=== PATIENT | male | born 1995 | race Caucasian/White ===

== ENCOUNTER 2018-08-09 11:26 | Inpatient (IN) ==
--- NOTE | 2018-08-09 12:28 | Emergency Department Note ---
ED Disposition Clinical Impression: Rectal foreign body Qualifiers: Encounter type: subsequent encounter Qualified Code(s): T18.5XXD - Foreign body in anus and rectum, subsequent encounter Disposition: Still a Patient Condition on Discharge: Good - Critical Care Critical Care Time: No Attestation: On 08/09/18, the high probability of a clinically significant, sudden or life th reatening deterioration of the following system(s) required my full and direct attention, intervention and personal management. The time I documented below is in addition to time spent performing reported procedures but includes the following listed in this critical care notation. Medical Decision Making - Endy Inquiry Pt receiving controlled substance: No Endy was queried for this patient: No Vital Signs: 08/09/18 11:31 08/09/18 12:36 08/09/18 12:58 Temperature 97.6 F Temperature Source Oral Pulse Rate [Left Radial] 103 H 99 H 96 H Respiratory Rate 18 18 18 Blood Pressure [Left Arm] 137/87 101/69 L 131/72 Blood Pressure Mean [Left Arm] 103 79 91 Blood Pressure Source [Left Arm] Automatic Cuff Automatic Cuff Automatic Cuff Blood Pressure Position [Left Arm] Sitting Sitting Sitting 02 Sat by Pulse Oximetry 97 98 96 Oxygen Delivery Method Room Air Room Air Room Air - Lab Data Lab Results 08/09/18 12:55: WBC 14.9 H, RBC 5.08, Hgb 13.5 L, Hct 42.1, MCV 83.0, MCH 26.6 L , MCHC 32.0, RDW 13.3, Plt Count 340, MPV 6.4 L, Neut % (Auto) 80.0, Lymph % (Auto) 10.7, [place] % (Auto) 7.5, Eos % (Auto) 1.6, Baso % (Auto) 0.2, Neut # (Auto) 12.0 H, Lymph # (Auto) 1.6, [place] # (Auto) 1.1 H, Eos # (Auto) 0.2, Baso # (Auto) 0.0 08/09/18 12:55: Sodium 139, Potassium 3.8, Chloride 102, Carbon Dioxide 26, Anion Gap 14.8, BUN 8, Creatinine 0.85, Estimated Creat Clear 143, Estimated GFR 111, Est GFR ( Amer) 134, Glucose 108 H, Calcium 8.6 Result diagrams: 08/10/18 08:16 12/24/18 08:16 Orders (Tests/Meds): ED MEDICATIONS Discontinued Medications Generic Name Dose Route Start Last Admin Trade Name Jedq PRN Reason Stop Dose Admin Acetaminophen 650 mg 08/09/18 17:17 Acetaminophen 325mg Tab PO 09/08/18 17:16 Q6HP PRN Mild Pain Hydrocodone Bitart/Acetaminophen 1 tab 08/09/18 17:17 08/11/18 23:32 [place] 5/325mg Tablet PO 09/08/18 17:16 1 tab Q6HP PRN Administration Moderate to Severe Pain Diatrizoate Meglum/Diatrizoate Sod 360 ml 08/10/18 12:00 08/10/18 12:04 Rad-Gastrografin (66%-10%);120ml RC 08/10/18 12:01 360 ml ONCE ONE Administration Hydromorphone HCl 0.5 mg 08/09/18 17:31 Dilaudid 2mg/Ml Syringe IV 08/09/18 19:31 Q5MINP PRN Moderate to Severe Pain Lactated Ringer's 1,000 mls @ 50 mls/hr 08/09/18 17:30 08/12/18 10:19 Lactated Ringer's 1000 Ml Bag IV 09/08/18 17:29 50 mls/hr .Q20H [place] Administration Ampicillin Sodium/Sulbactam 100 mls @ 200 mls/hr 08/09/18 17:30 08/10/18 10:58 Sodium 3 gm/ Sodium Chloride IV 08/23/18 17:29 Not Given Q6H [place] Protocol Ampicillin Sodium/Sulbactam 100 mls @ 200 mls/hr 08/09/18 21:30 08/10/18 03:48 Sodium 3 gm/ Sodium Chloride IV 08/23/18 21:29 200 mls/hr Q6H [place] Administration Protocol Ampicillin Sodium/Sulbactam 100 mls @ 200 mls/hr 08/10/18 11:00 08/12/18 05:09 Sodium 3 gm/ Sodium Chloride IV 08/24/18 10:59 200 mls/hr Q6H [place] Administration Protocol Meperidine HCl 12.5 mg 08/09/18 17:31 Meperidine 25mg/Ml 1ml Syringe IV 08/09/18 19:31 Q5MINP PRN [place] Meperidine HCl 25 mg 08/09/18 17:31 Meperidine 25mg/Ml 1ml Syringe IV 08/09/18 19:31 Q5MINP PRN [place] Morphine Sulfate 2 mg 08/09/18 17:17 08/09/18 23:28 Morphine 2mg/Ml Syringe IV 09/08/18 17:16 2 mg Q2HP PRN Administration Moderate to Severe Pain Morphine Sulfate 2 mg 08/09/18 17:31 Morphine 2mg/Ml Syringe IV 08/09/18 19:31 Q5MINP PRN Severe Pain Morphine Sulfate 2 mg 08/10/18 08:03 08/10/18 20:35 Morphine 4mg/Ml Syringe IV 09/08/18 17:16 2 mg Q2HP PRN Administration Moderate to Severe Pain Ondansetron HCl 4 mg 08/09/18 17:17 08/11/18 08:05 Zofran 4mg/2ml Vial IV 09/08/18 17:16 4 mg Q6HP PRN Administration Nausea Ondansetron HCl 4 mg 08/09/18 17:31 Zofran 4mg/2ml Vial IV 08/09/18 19:31 Q6HP PRN Nausea Promethazine HCl 6.25 mg 08/09/18 17:31 Phenergan 25mg/Ml 1ml Vial IV 08/09/18 19:31 [id number] PRN Nausea And Vomiting Sodium Chloride 10 ml 08/09/18 17:17 08/09/18 23:28 Saline Flush 10ml Syringe IV 09/08/18 17:16 10 ml NEEDED PRN Administration Maintain IV Site Sodium Chloride 25 ml 08/09/18 17:31 Sod Chlor 0.9% 25ml Bag IV 08/09/18 19:32 NEEDED PRN for Use with IV Promethazine - Radiology Data #1 Image(s): Pelvis Image Reviewed: Yes I reviewed the patient's radiology image round foreign body high rectum General Adult HPI - General Chief complaint: Skin/Abscess/Foreign Body Stated complaint: object stuck in anal cavity Time Seen by Provider: 08/09/18 12:00 Mode of Arrival: Ambulatory Limitations: No Limitations Description of Symptoms (Recalled from ER Triage Doc. by RN): Pt reports that "I have a butt toy stuck in my butt", pt states object has been in his rectum since midnight tonight. Pt reports discomfort in rectal area. - History of Present Illness HPI narrative: playing with a leather sex toy last night, a "butt plug" and states the base broke off. This was 12 hours ago. No rectal bleeding, fever, abdominal pain, vomiting MD complaint: butt plug in rectum x 12 hours Onset (ago): hour(s) (12) Location: pelvis Radiation: non-radiation Severity: mild Severity scale (1-10): 1 Consistency: constant Relieving factors: none - Related Data Home Medications Medication Instructions Recorded Confirmed acetaminophen 500 mg capsule 500 mg PO Q6H PRN 08/19/18 08/19/18 Allergies Allergy/AdvReac Type Severity Reaction Status Date / Time cefaclor [From Ceclor] Allergy Unknown Verified 08/19/18 09:43 [facility] [place] History - Hepatitis A Screen Drug use history?: No High risk sexual behaviors?: No History of sexually transmitted infection?: No Currently employed?: No Childcare worker?: No Do you have indoor plumbing?: Yes Do you have electricity?: Yes Attestation statement:: This patient has been screened for Hepatitis A risk factors. Medical History: Denies:: Diabetes Mellitus Type 1, Diabetes Mellitus Type 2 - Social History Tobacco Type: cigarettes Alcohol Intake: never Alcohol Intake Frequency:: 0-2 drinks per day - Psychiatric History Expresses thoughts of harming self/others: None Suicide Plan Description: No Plan Family Hx:: No significant family history ROS Obtained: Yes All systems reviewed & no additional complaints - Constitutional Constitutional: Reports system reviewed and no additional complaints, except as docu, Denies chills, Reports fatigue, Denies weakness - Eyes Eyes: Denies loss of vision - ENT Ears, Nose, Mouth, and Throat: Denies difficulty swallowing, Denies throat swelling - Cardiovascular Cardiovascular: Denies chest pain at rest, Denies chest pain with activity, Denies dyspnea, Denies rapid heart rate - Respiratory Respiratory: No coughing up blood, No pain on inspiration - Genitourinary Male Genitourinary: Denies difficulty urinating, Denies difficulty with ejaculations, Denies hematuria - Musculoskeletal Musculoskeletal: Denies muscle weakness - Integumentary/Breasts Skin/Breast: Reports system reviewed and no additional complaints, except as docu, Denies rash - Neurologic Neurologic: Denies dizziness, Denies headache(s), Denies numbness - Hematologic/Lymphatic Henatologic/Lymphatic: Denies easy bleeding, Denies easy bruising Physical Exam - General General appearance: alert, in no apparent distress - Head Head exam: atraumatic - Eye Eye exam: Present: normal appearance, scleral icterus - ENT ENT exam: Present: normal exam, normal oropharynx, mucous membranes moist - Neck Neck exam: Present: normal inspection - Respiratory Respiratory exam: Present: normal lung sounds bilaterally. Absent: respiratory distress, wheezes, stridor - Cardiovascular Cardiovascular exam: Present: regular rate, normal rhythm - Rectal Exam Rectal exam: Present: normal inspection, normal rectal tone, other (foreign body high rectum, correlates with xray). Absent: bloody stool, fecal impaction - Extremities Exam Extremities exam: Present: normal inspection, full ROM. Absent: tenderness, normal capillary refill, pedal edema, joint swelling - Neurological Exam Neurological exam: Present: alert, oriented X3, CN II-XII intact - Psychiatric Psychiatric exam: Present: normal affect - Skin Skin exam: Present: warm, dry, intact, normal color. Absent: rash, cyanosis, diaphoresis
[2018-08-09 13:09] LABS: Basophils % 0.2 % (0.1-2.0); Eosinophils # 0.2 K/mm3 (0.0-0.4); Eosinophils % 1.6 % (0.1-12.0); Hematocrit 42.1 % (42.0-52.0); Hemoglobin 13.5 g/dL (14.1-18.0); Lymphocytes # 1.6 K/mm3 (0.7-4.5); Lymphocytes % 10.7 % (10-50); Mean Corpuscular Hemoglobin 26.6 pg (27.0-31.2); Mean Platelet Volume 6.4 fl (7.4-10.4); Monocytes # 1.1 K/mm3 (0.1-1.0); Monocytes % 7.5 % (1.7-9.3); Platelet Count 340 K/mm3 (142-424); Red Blood Count 5.08 M/mm3 (4.60-6.20); Red Cell Distribution Width 13.3 % (11.5-17.5); White Blood Count 14.9 K/mm3 (4.8-10.8)
[2018-08-09 13:17] LABS: Anion Gap 14.8 mEq/L (5-15); Calcium 8.6 mg/dL (8.5-10.1); Potassium 3.8 mmoL/L (3.5-5.1)
--- NOTE | 2018-08-09 13:23 | History & Physical Report ---
HPI HPI: Patient is a 22-year-old white male who allegedly had inserted a foreign body in his rectum approximately midnight last night and has been unable to retrieve or defecate the foreign body. He does have some pressure when sitting up but no severe pain. No rectal bleeding. Attempt was made at extraction in the emergency department without success and surgical consultation was obtained. [facility] History Medical History: Denies:: Diabetes Mellitus Type 1, Diabetes Mellitus Type 2 - *Social History Tobacco Type: cigarettes Alcohol Intake: never Alcohol Intake Frequency:: 0-2 drinks per day - Psychiatric History Expresses thoughts of harming self/others: None Suicide Plan Description: No Plan *Family Hx:: No significant family history Review of Systems - Review of Systems Review of systems:: pertinent systems reviewed and negative unless documented below - *Neurologic Denies dizziness, Denies headache(s), Denies loss of vision, Denies numbness, Denies weakness Meds Home Medications Medication Instructions Recorded Confirmed Type No Known Home Medications 08/09/18 08/09/18 History Allergies Allergy/AdvReac Type Severity Reaction Status Date / Time cefaclor [From Ceclor] Allergy Unknown Unverified 08/05/17 14:06 Exam Vital signs and Labs for Last 24 Hours: Temp Pulse Resp BP Pulse Ox 97.6 F 99 H 18 101/69 L 98 08/09/18 11:31 08/09/18 12:36 08/09/18 12:36 08/09/18 12:36 08/09/18 12:36 Laboratory Results - last 24 hr 08/09/18 12:55: WBC 14.9 H, RBC 5.08, Hgb 13.5 L, Hct 42.1, MCV 83.0, MCH 26.6 L , MCHC 32.0, RDW 13.3, Plt Count 340, MPV 6.4 L, Neut % (Auto) 80.0, Lymph % (Auto) 10.7, [place] % (Auto) 7.5, Eos % (Auto) 1.6, Baso % (Auto) 0.2, Neut # (Auto) 12.0 H, Lymph # (Auto) 1.6, [place] # (Auto) 1.1 H, Eos # (Auto) 0.2, Baso # (Auto) 0.0 08/09/18 12:55: Sodium 139, Potassium 3.8, Chloride 102, Carbon Dioxide 26, Anion Gap 14.8, BUN 8, Creatinine 0.85, Estimated Creat Clear 143, Estimated GFR 111, Est GFR ( Amer) 134, Glucose 108 H, Calcium 8.6 I & O for Last 24 hours: Intake & Output 08/07/18 08/08/18 08/09/18 08/10/18 11:59 11:59 11:59 11:59 Weight 310 lb - *Routine HEENT Exam Head: Present: normocephalic Eye: Present: EOMI, PERRL ENT: Present: mucous membranes moist - *Routine Neck Exam Present: supple. Absent: lymphadenopathy - *Routine Respiratory Exam Present: CTA bilaterally - *Routine Cardiovascular Exam Present: RRR - *Routine Abdominal Exam Present: soft, normoactive bowel sounds. Absent: tenderness - *Routine Extremities Exam Absent: cyanosis, clubbing, edema - *Routine Skin Exam Present: warm. Absent: rash - *Routine Neurological Exam Present: alert, oriented X3 - Detailed Eye Exam Eyelids: Left normal inspection Results - Results Lab Results Last 24 Hours:: Laboratory Results - last 24 hr 08/09/18 12:55: WBC 14.9 H, RBC 5.08, Hgb 13.5 L, Hct 42.1, MCV 83.0, MCH 26.6 L , MCHC 32.0, RDW 13.3, Plt Count 340, MPV 6.4 L, Neut % (Auto) 80.0, Lymph % (Auto) 10.7, [place] % (Auto) 7.5, Eos % (Auto) 1.6, Baso % (Auto) 0.2, Neut # (Auto) 12.0 H, Lymph # (Auto) 1.6, [place] # (Auto) 1.1 H, Eos # (Auto) 0.2, Baso # (Auto) 0.0 08/09/18 12:55: Sodium 139, Potassium 3.8, Chloride 102, Carbon Dioxide 26, Anion Gap 14.8, BUN 8, Creatinine 0.85, Estimated Creat Clear 143, Estimated GFR 111, Est GFR ( Amer) 134, Glucose 108 H, Calcium 8.6 Assessment and Plan - Assessment and plan all Dx Assessment and Plan for all problems:: Plan for exam under anesthesia with retrieval of foreign body. I explained the nature and details of the procedure along with the associated risks with the patient. I also explained to him the potential need for operative intervention if necessary. He understands and agrees to proceed.
--- NOTE | 2018-08-09 15:11 | Operative Note ---
Date of procedure: 08/09/18 Pre-op Diagnosis:: Rectal foreign body Post-op Diagnosis:: Same Procedure performed:: Exam under general anesthesia, proctosigmoidoscopy with instrumentation of the rectum. Surgeon:: Ronnell Arredondo MD MANAGER CONVENTION:: Armando Riley Anesthesia: GETA Estimated blood loss (mL): 5 Clinical Note:: Patient is a 22-year-old white male who allegedly around midnight last night had a rectal foreign body inserted and this was unable to be retrieved. He presented to the emergency department early this afternoon and surgical consultation was obtained as the ER physician was unable to extract the foreign body. Plan was made for exam under anesthesia with proctosigmoidoscopy if necessary. Operative findings:: Patient had what appeared to be a leather athletic ball at the rectosigmoid region Operative note:: Consent was obtained and patient was taken the operating room. He was pos itioned in a supine position. General anesthesia was induced. He was positioned in modified lithotomy position. Digital examination was performed which revealed diminished sphincter tone. The object in question was unable to be palpated initially. Liberty anoscope was inserted. The object could not be identified. Rigid proctoscope was inserted and advanced to approximately 17 or 18 cm. Object was identified but was unable to be retrieved. Endoscope equipment was brought to the operating room. Flexible sigmoidoscopy was performed and the object in question was encountered at the rectosigmoid junction. This appeared to be consistent with a spherical leather bound athletic ball. Balloon dilator was inserted through the endoscope and was advanced beyond the object and insufflated. Retraction was then performed in attempt to withdrawal the object into the rectal vault. This was repeatedly performed several times with minimal, only transient, success. As it was withdrawn somewhat the rigid proctoscope was inserted once again and multiple attempts were made to extract the object using laparoscopic grasping forceps without success. After a very prolonged unsuccessful attempted to extract the object plan was made to proceed with exploratory laparotomy. Condition: stable Disposition: no change Complications:: None immediately apparent
--- NOTE | 2018-08-09 17:09 | Operative Note ---
Date of procedure: 08/09/18 Pre-op Diagnosis:: Colorectal foreign body Post-op Diagnosis:: Same Procedure performed:: 1. Exploratory laparotomy with extraction of colorectal foreign body via the anus 2. Limited completion flexible sigmoidoscopy Surgeon:: Ronnell Arredondo MD BUTTER MELTER:: Armando Riley Anesthesia: GETA Estimated blood loss (mL): 50 Clinical Note:: Patient is a 22-year-old white male who had presented to the emergency department earlier this afternoon with a 12-hour history of reportedly retained rectal foreign body. Attempts at extraction in the emergency department were unsuccessful and surgical consultation was obtained. Patient was taken to the operating room at which time he underwent stage a as well as rigid proctosigmoidoscopy and flexible sigmoidoscopy in an attempt to extract the foreign body. After prolonged procedure with a variety of techniques no success was achieved and retrieval of the foreign body and plan was made for laparotomy. Operative findings:: Patient had a large spherical object with a leather covering knitted in place tightly impacted at the rectosigmoid region with "Joanna" printed on the leather covering. There was no obvious colon perforation. Operative note:: Consent was obtained and patient was maintained in the operating room after his unsuccessful attempt at extraction my exam under anesthesia. His abdomen and perineum were prepped and draped in the standard surgical fashion after a Lion catheter was placed. Low midline incision was made dissection was carried down through subcutaneous tissues using electrocautery. Fascia was incised. Ultimately the peritoneal cavity was entered. Simple entry into the peritoneal cavity was rather difficult due to the patient's profound body habitus. Ultimately exposure was achieved. There is limited visualization but palpation of the lower abdomen revealed a very large spherical object which was seemingly impacted at the rectosigmoid region. Attempted intra-abdominal manipulation with extraction via the anus was performed for quite some time initially without success. Consideration was being given for colon resection with creation of end colostomy for extraction of the foreign body. However, additional attempt was made to manipulate the foreign body to the rectum. With difficulty was able to be advanced beyond the peritoneal reflection at the rectosigmoid region and into the rectal vault. It was then extracted via the anus. This did require some extensive pressure and manipulation of the colon. There was no obvious notable injury to the colon but exposure and visualization was difficult due to the patient's body habitus. There appeared to be good hemostasis. The fascia was then closed with a running #2 Novafil x2. Subcutaneous tissues were irrigated. Skin was closed with maye. Clean dry sterile dressing was applied. At the completion of the laparotomy limited flexible sigmoidoscopy was performed. Visualization was somewhat poor due to the lack of colon preparation. Thorough irrigation was performed. Flexible sigmoidoscopy was performed to approximately 30-35 cm from the anal verge. There was noted to be a linear ulceration without perforation approximately 18-20 cm from the anal verge at the site of the foreign body impaction. There was not noted to be any obvious perforation in the region of the foreign body impaction or proximally or distally noted although preparation was poor. Endoscope was withdrawn. Condition: stable Disposition: PACU Complications:: None immediately apparent
--- NOTE | 2018-08-09 17:29 | Progress Note ---
[facility] Anesthesia Checklist - Patient Identification Patient Identification: Arm Band - Structural Data Admitted From: Emergency Dept Planned Operative Procedure/s: removal foreign body rectum Consent for Planned Operative Procedure(s) Verified: Yes Verified Documents: Surgical Consent, History and Physical - NPO Status Verified Time NPO: 00:00 - Additional verifications Anesthesia Reactions: No - Airway Assessment C-Spine Mobility Assessed: Yes (mp1) TMJ Mobility Assessed: Yes Dentition: Good Dentition - Neurological Assessment Level of Consciousness: Awake, Alert - Anesthesia Plan Anesthesia Risk discussed: Yes Anesthesia Plan: Verified ASA Class: II (e) Anesthesia Type: General [facility] History I have reviewed the patient's past medical history: Yes Medical History: Reports:: Hypertension Denies:: Diabetes Mellitus Type 1, Diabetes Mellitus Type 2 Other Surgeries: Yes: No Previous Surgery - *Social History Tobacco Type: cigarettes Alcohol Intake: never Alcohol Intake Frequency:: 0-2 drinks per day - Psychiatric History Expresses thoughts of harming self/others: None Suicide Plan Description: No Plan *Family Hx:: No significant family history
--- NOTE | 2018-08-09 17:31 | Progress Note ---
[facility] Anesthesia Record Part II Discharge Time: 17:50 Destination: 2nd floor PACU nurse assessment reviewed?: Yes Patient Condition:: Good Anesthesia Complications:: None
--- NOTE | 2018-08-09 17:31 | Progress Note ---
[facility] Anesthesia Record Part I Intake, IV Amount: 2,000 Estimated blood loss (mL): 50 Urine output (mL): 700 Blood Pressure: 133/73 SaO2: 95 Pulse Rate: 72 Respiratory Rate: 16 Temperature: 98.5 F Patient is:: Drowsy, Stable Stable to PACU at:: 17:20
--- NOTE | 2018-08-10 08:01 | Progress Note ---
Subjective Narrative: Patient complains of significant amount of pain around his incision. He has no nausea. Exam Vital signs and Labs for Last 24 Hours: Temp Pulse Resp BP Pulse Ox 98.5 F 94 H 15 112/58 L 91 L 08/10/18 07:23 08/10/18 07:23 08/10/18 07:23 08/10/18 07:23 08/10/18 07:23 Laboratory Results - last 24 hr 08/09/18 12:55: WBC 14.9 H, RBC 5.08, Hgb 13.5 L, Hct 42.1, MCV 83.0, MCH 26.6 L , MCHC 32.0, RDW 13.3, Plt Count 340, MPV 6.4 L, Neut % (Auto) 80.0, Lymph % (Auto) 10.7, [place] % (Auto) 7.5, Eos % (Auto) 1.6, Baso % (Auto) 0.2, Neut # (Auto) 12.0 H, Lymph # (Auto) 1.6, [place] # (Auto) 1.1 H, Eos # (Auto) 0.2, Baso # (Auto) 0.0 08/09/18 12:55: Sodium 139, Potassium 3.8, Chloride 102, Carbon Dioxide 26, Anion Gap 14.8, BUN 8, Creatinine 0.85, Estimated Creat Clear 143, Estimated GFR 111, Est GFR ( Amer) 134, Glucose 108 H, Calcium 8.6 08/09/18 15:40: Urine Color Yellow, Urine Appearance Clear, Urine pH 6.0, Ur Specific [place] 1.020, Urine Protein Negative, Urine Glucose (UA) Negative, Urine Ketones Trace, Urine Blood Negative, Urine Nitrate Negative, Urine Bilirubin Negative, Urine Urobilinogen 0.2, Ur Leukocyte Esterase Negative, Urine WBC 3-5 I & O for Last 24 hours: Intake & Output 08/07/18 08/08/18 08/09/18 08/10/18 11:59 11:59 11:59 11:59 Intake Total 3771 / 3771 Output Total 2200 / 2200 Balance 1571 / 1571 Weight 310 lb 306 lb 5 oz - *Routine Abdominal Exam Present: soft Comments: He has brownish serosanguineous drainage on the dressing. He is tender in incision lower quadrant. Progress Note: A&P Assessment and Plan for All Diagnoses:: Likely merely serosanguineous drainage. However, concerning with the amount of pain the patient is having in addition to the drainage. We will obtain a Gastrografin enema as soon as possible this morning to evaluate for the integrity of the rectosigmoid colon and rule out leak. If he does have a leak he will need laparotomy with colostomy.
[2018-08-10 08:23] LABS: Basophils % 0.2 % (0.1-2.0); Eosinophils # 0.2 K/mm3 (0.0-0.4); Eosinophils % 1.3 % (0.1-12.0); Hematocrit 41.3 % (42.0-52.0); Lymphocytes # 2.4 K/mm3 (0.7-4.5); Lymphocytes % 18.8 % (10-50); Mean Corpuscular HGB Conc 31.4 g/dL (31.8-35.4); Mean Corpuscular Hemoglobin 26.5 pg (27.0-31.2); Mean Corpuscular Volume 84.3 fl (80-94); Mean Platelet Volume 6.6 fl (7.4-10.4); Monocytes % 7.6 % (1.7-9.3); Neutrophils # 9.2 K/mm3 (1.8-7.8); Neutrophils % 72.2 % (37.0-80.0); Platelet Count 281 K/mm3 (142-424); Red Cell Distribution Width 13.4 % (11.5-17.5); White Blood Count 12.7 K/mm3 (4.8-10.8)
--- NOTE | 2018-08-10 08:27 | Pharmacy Consult Notes ---
[facility] Pharmacy VTE Monitoring - Patient Demographics Admission date: 08/09/18 Report Date: 08/10/18 Time: 08:27 Allergies/Adverse Reactions: Patient Allergies cefaclor [From Ceclor] Allergy (Unknown, Verified 08/09/18 18:31) Height: 1.8 m Weight: 138.941 kg Patient Problems: Current Active Problems Rectal foreign body (Acute) - VTE Risk Labs: VTE Related Lab Results Hgb 13.0 g/dL (14.1-18.0) L 08/10/18 08:16 Hct 41.3 % (42.0-52.0) L 08/10/18 08:16 Plt Count 281 K/mm3 (142-424) 08/10/18 08:16 BUN 8 mg/dL (7-18) 08/09/18 12:55 Creatinine 0.85 mg/dL (0.70-1.30) 08/09/18 12:55 Estimated Creat Clear 143 mL/min (50-200) 08/09/18 12:55 Clinical Trial Participant: No - Prophylaxis VTE Prophylaxis Ordered?: Yes Types of VTE Prophylaxis: TEDS Knee High Location of Applied Device: Bilateral Lower Extremeties
[2018-08-10 08:29] LABS: Calcium 8.1 mg/dL (8.5-10.1)
--- NOTE | 2018-08-11 09:45 | Progress Note ---
Subjective Patient reports: bowel movement, nausea, vomiting (Nausea and one episode of emesis earlier this morning.) Exam Vital signs and Labs for Last 24 Hours: Temp Pulse Resp BP Pulse Ox 98.0 F 96 H 18 147/90 H 97 08/11/18 07:52 08/11/18 07:52 08/11/18 07:52 08/11/18 07:52 08/11/18 07:52 I & O for Last 24 hours: Intake & Output 08/08/18 08/09/18 08/10/18 08/11/18 11:59 11:59 11:59 11:59 Intake Total 3771 / 3771 2281 / 2281 Output Total 2200 / 2200 1100 / 1100 Balance 1571 / 1571 1181 / 1181 Weight 310 lb 306 lb 5 oz - Constitutional no acute distress - *Routine Respiratory Exam Absent: respiratory distress - *Routine Cardiovascular Exam Present: RRR - *Routine Abdominal Exam Present: soft Comments: Incision clean and intact. No erythema. Small amount of serosanguineous drainage inferiorly. Progress Note: A&P (1) Rectal foreign body Status: Acute Assessment and plan: Overall, doing fairly well status post exploratory laparotomy with removal of colorectal foreign body. Although he has had bowel function postoperatively, significant nausea and an episode of emesis earlier this morning. No advancement of diet as of now Serial abdominal exams Increase ambulation Current Visit: Yes
--- NOTE | 2018-08-12 08:36 | Progress Note ---
Subjective Patient reports: feels better, bowel movement Exam Vital signs and Labs for Last 24 Hours: Temp Pulse Resp BP Pulse Ox 97.9 F 86 16 114/65 94 L 08/12/18 08:00 08/12/18 08:00 08/12/18 08:00 08/12/18 08:00 08/12/18 08:00 I & O for Last 24 hours: Intake & Output 08/09/18 08/10/18 08/11/18 08/12/18 11:59 11:59 11:59 11:59 Intake Total 3771 / 3771 2281 / 2281 1440 / 1440 Output Total 2200 / 2200 1100 / 1100 Balance 1571 / 1571 1181 / 1181 1440 / 1440 Weight 310 lb 306 lb 5 oz - Constitutional no acute distress - *Routine Respiratory Exam Absent: respiratory distress - *Routine Cardiovascular Exam Present: RRR - *Routine Abdominal Exam Present: soft Comments: Incision clean, dry, and intact. No erythema. Progress Note: A&P (1) Rectal foreign body Status: Acute Assessment and plan: , Doing well postoperative day 3 status post laparotomy and colorectal foreign body removal. Advance diet. Likely discharge home soon if he tolerates continued advancement of his diet. Current Visit: Yes
--- NOTE | 2018-08-12 12:34 | Discharge Summary ---
General - General Admission date:: 08/09/18 Discharge date: 08/12/18 HPI HPI: Patient is a 22-year-old white male who allegedly had inserted a foreign body in his rectum approximately midnight last night and has been unable to retrieve or defecate the foreign body. He does have some pressure when sitting up but no severe pain. No rectal bleeding. Attempt was made at extraction in the emergency department without success and surgical consultation was obtained. Hospital Course Hospital Course: The patient underwent endoscopic attempts at foreign body removal. This was followed by laparotomy with transanal extraction of foreign body. Please see operative reports for detail. Postoperatively, he convalesced fairly well. He did have fairly significant pain on postoperative day 1. Gastrografin enema revealed no sign of leak. He also suffered from a fairly mild postoperative ileus. By postoperative day 3 he was tolerating clear liquids fairly well and his diet was advanced. He remained afebrile with stable normal vital signs and was deemed appropriate for discharge on the afternoon of postoperative day 3. Objective Vital signs: Temp Pulse Resp BP Pulse Ox 97.9 F 86 16 114/65 94 L 08/12/18 08:00 08/12/18 08:00 08/12/18 08:00 08/12/18 08:00 08/12/18 08:15 no acute distress - *Routine HEENT Exam Head: Present: normocephalic, atraumatic - *Routine Neck Exam Present: full ROM - Routine Chest/Breast/Axilla Exam Chest wall: Absent: tenderness - *Routine Respiratory Exam Absent: respiratory distress - *Routine Cardiovascular Exam Present: RRR - *Routine Abdominal Exam Present: soft - *Routine Extremities Exam Present: full ROM. Absent: cyanosis, clubbing, edema - Routine Back/Spine/Pelvis Exam Back/Spine: Present: full ROM - *Routine Skin Exam Present: intact. Absent: cyanosis, erythema - *Routine Neurological Exam Present: alert, oriented X3 - Routine Psychiatric Exam Present: normal affect DS: Diagnosis - Discharge Diagnosis (1) Rectal foreign body Status: Acute Discharge Plan - Patient Discharge Instructions ACTIVITY: No heavy lifting DIET: advance to your usual diet Patient Instructions: DI for Removal of Foreign Body From Rectum, DI for Nausea -- Adult, DI for Surgical Site Infection - Follow up Plan Follow up with: ProviderLeonidas MD [Primary Care Provider] - Ronnell Arredondo MD [Staff Physician] - 1 week Disposition: Home, Self-Skilled Nursing Medications: Home Medications Medication Instructions Recorded Confirmed Type No Known Home Medications 08/09/18 08/09/18 History Prescriptions/Medication Reconciliation: No Action No Known Home Medications
== END 2018-08-12 14:56 | disposition home or self-care (01) | DRG 346 ==
LOC: ER 11:26 → 2ND 13:19 → SDC 13:19 → OBSVTOIN 15:07
PROVIDERS: ADMIT Surgery; ATTEND Surgery
DX: T18.5XXA Foreign body in anus and rectum, initial encounter
CPT/HCPCS: 36415; 74000; 74018; 74270; 80048; 81001; 85025; 93005; 94761; 99284; C1726; J0131; J0330; J2405; J2710

== ENCOUNTER 2019-12-19 13:51 | Emergency (ER) | payer BC, SELFPAY ==
[2019-12-19 14:00] VITALS: BP 143/95; PULSE 114; RESP 18; TEMP 37.3; O2SAT 97; BMI 43.2
--- NOTE | 2019-12-19 14:22 | HMH.EDUTC ---
[facility] [place] Clinical Impression: UTI (urinary tract infection) Qualifiers: Urinary tract infection type: site unspecified Hematuria presence: with hematuria Qualified Code(s): N39.0 - Urinary tract infection, site not specified Disposition: Home, Self-Care Condition on Discharge: Good Instructions: Urinary Tract Infection, Ciprofloxacin, Phenazopyridine Additional Instructions: *Increase fluids. Water not Soda or Tea *Start antibiotic immediately and be sure to take as ordered for the FULL length of time although you should start to see improvement over the next 48 hours Be SURE to follow up anytime for new or worsening symptoms with your family doctor. AND in 48 hours for urine culture results with your family doctor, if you do not have a doctor then you may call back to the [facility] for urine culture results and further treatment. We do recommend that you choose and establish care with a Primary Care Physician. *Pyridium as needed Remember this medication will turn your urine [place]. This is normal but it will stain what ever it gets on *You should not use Pyridium for more than 48 hours. If so , follow up with your primary physician to review urine culture and ensure that antibiotic is adequate for infection AND follow up with them in 10-14 days to repeat UA to ensure infection is resolved and blood no longer present *Be sure to let your PCP know that we sent urine cultures from the [facility] so they can follow up to ensure that you area the on the correct antibiotic Call your doctor office and make appointment for 48 hours (2 days from today) to follow up and get the results of your urine culture and further treatment Prescriptions: Ciprofloxacin HCl [Cipro 500mg Tab] 500 mg PO BID 10 Days #20 tab Prescription Printed Phenazopyridine HCl [Pyridium 200mg Tablet] 200 pow PO TID #6 tab Prescription Printed Referrals: Leah Mackay [Primary Care Provider] - As needed Time of Disposition: 14:45 Medical Decision Making - Endy Inquiry Pt receiving controlled substance: No Endy was queried for this patient: No Vital Signs: 12/19/19 14:00 Temperature 99.2 F Temperature Source Oral Pulse Rate [Radial] 114 H Respiratory Rate 18 Blood Pressure [Right Arm] 143/95 H Blood Pressure Mean [Right Arm] 111 Blood Pressure Source [Right Arm] Automatic Cuff Blood Pressure Position [Right Arm] Sitting 02 Sat by Pulse Oximetry 97 Oxygen Delivery Method Room Air - Lab Data Lab results reviewed: Yes: I reviewed the patient's lab results. Lab Results 12/19/19 14:18: Urine Color Yellow, Urine Appearance Clear, Urine pH 5.5, Ur Specific [place] 1.025, Urine Protein 1+, Urine Glucose (UA) Negative, Urine Ketones Negative, Urine Blood 1+, Urine Nitrate Negative, Urine Bilirubin Negative, Urine Urobilinogen 0.2, Ur Leukocyte Esterase 1+ A Orders (Tests/Meds): ORDERS Category Date Time Status Urine Culture Stat Micro 12/19/19 14:37 Ordered [facility] [place] - General Stated complaint: ? kidney infection Time Seen by Provider: 12/19/19 14:22 Mode of Arrival: Ambulatory Source of Information: Patient Limitations: No Limitations Description of Symptoms (Recalled from Triage Doc. by RN): burning with urination, possible uti HEENT Symptoms (Recalled from RN notes): No Resp Symptoms (Recalled from RN notes): No Skin Symptoms (Recalled from RN notes): No MS Symptoms (Recalled from RN notes): No Functional Status (Recalled from RN notes): wnl - History of Present Illness Provider Complaint: Patient states that he has been having some burning with urination for a couple of days that has continued to get worse along with the feeling of urgency and frequency States that he has a history or UTI and use to get them all the time Denies fever denies flank pain denies difficulty urinating - Related Data Previous Rx's Medication Instructions Recorded Ciprofloxacin HCl [Cipro 500mg 500 mg PO BID 10 Days #20 tab 12/19/19 Tab*
[2019-12-19 14:31] LABS: Apearance,Urine Clear (Clear); Bilirubin,Urine Negative (Negative); Blood, Urine 1+ (Negative); Color,Urine Yellow (Yellow); Glucose,Urine (UA) Negative (Negative); Ketones,Urine Negative (Negative); PH,Urine 5.5 (5.0-8.5); Protein,Urine 1+ (Negative); Specific Gravity, Urine 1.025 (1.005-1.030); UTC Leukocyte Esterase,Urine 1+ (Negative); UTC Nitrate,Urine Negative (Negative); Urobilinogen,Urine 0.2 EU/dl (0.2)
[2019-12-19 14:53] VITALS: BP 143/95; PULSE 114; RESP 18; TEMP 37.3; O2SAT 97
== END 2019-12-19 14:54 | disposition home or self-care (01) ==
PROVIDERS: Emergency Provider Nurse Practitioner; PCP Family Medicine
DX: N30.00 Acute cystitis without hematuria (principal); I10 Essential (primary) hypertension
CPT/HCPCS: 81003; 87086; 87088; 87186; 99201

== ENCOUNTER → 2020-09-05 14:14 | Outpatient (CLI) | payer BC, SELFPAY ==
--- NOTE | 2020-09-05 14:20 | XR_ITS ---
PROCEDURE: XR FOOT WT BEARING LT 3V CLINICAL INDICATION: PAIN COMPARISON: CR XR FOOT RT MIN 3V from 11/05/2019 CR XR FOOT WT BEARING RT 3V from 09/05/2020 FINDINGS: No fracture or dislocation. No lytic or blastic change. There is normal mineralization. The joint spaces are well-preserved. No significant degenerative/arthritic changes. No erosive changes evident. Other findings:Moderate pes planus mild hypertrophic changes are present involving the distal and anterior aspect of the talus with osteoarthritic change of the talonavicular joint IMPRESSION: Moderate pes planus with mild hypertrophic changes are present involving the distal and anterior aspect of the talus with osteoarthritic change of the talonavicular joint Dictated by: Jerome Hahn MD 09/05/2020 14:51 Jerome Hahn MD in [place] 09/05/2020 14:51
--- NOTE | 2020-09-05 14:20 | XR_ITS ---
PROCEDURE: XR FOOT WT BEARING RT 3V CLINICAL INDICATION: PAIN COMPARISON: CR XR FOOT RT MIN 3V from 11/05/2019 FINDINGS: No fracture or dislocation. No lytic or blastic change. There is normal mineralization. The joint spaces are well-preserved. No significant degenerative/arthritic changes. No erosive changes evident. Other findings:There is mild pes planus IMPRESSION: Pes planus otherwise negative Dictated by: Jerome Hahn MD 09/05/2020 14:50 Jerome Hahn MD in [place] 09/05/2020 14:50
== END ==
PROVIDERS: PCP Family Medicine; Visit Provider Podiatrist
DX: M79.672 Pain in left foot (principal); M79.671 Pain in right foot
CPT/HCPCS: 73630

== ENCOUNTER 2022-04-01 13:08 | Emergency (ER) | payer BC, SELFPAY ==
[2022-04-01 13:09] VITALS: BP 145/94; PULSE 84; RESP 18; TEMP 36.7; O2SAT 95; BMI 43.3
[2022-04-01 13:31] VITALS: BP 130/84; PULSE 87; O2SAT 95
--- NOTE | 2022-04-01 13:44 | CT_ITS ---
FINAL REPORT CLINICAL HISTORY: pain, constipation x 3 days FINDINGS: Axial CT images of the abdomen and pelvis were obtained without intravenous contrast. Coronal reformatted images were also obtained.This study was performed with techniques to keep radiation doses as low as reasonably achievable (ALARA). Individualized dose reduction techniques using automated exposure control or adjustment of mA and/or kV according to the patient's size were employed. Abdomen: The lung bases are clear. There is no evidence of renal stone or hydronephrosis.The liver, spleen and pancreas have an unremarkable, unenhanced appearance. There is an umbilical hernia containing fat. Pelvis: The appendix is normal. The urinary bladder is unremarkable. There is wall thickening of the rectum with adjacent inflammation which may represent colitis. Neoplasm is not excluded but thought less likely. There are several enlarged perirectal nodes. IMPRESSION: No renal or ureteral stone, or hydronephrosis. Wall thickening of the rectum with adjacent inflammation which may represent colitis. Neoplasm is not excluded but thought less likely. Reviewed, Interpreted and Dictated by Ronnell Zelaya III, MD Transcribed by Sona Ferraro Authenticated and [facility]
--- NOTE | 2022-04-01 13:49 | HMH.EDGENADL ---
ED Disposition Clinical Impression: Colitis Disposition: Home, Self-Care Condition on Discharge: Good Instructions: DI for Colitis Prescriptions: Ciprofloxacin HCl [Cipro 500mg Tab] 500 mg PO BID #20 tab Transmission Status: Pending to [facility] # metroNIDAZOLE [metroNIDAZOLE 500mg Tablet] 0 mg PO Q8 #30 tab Transmission Status: Pending to [employer] # Referrals: Leah Mackay [Primary Care Provider] - Ronnell Arredondo MD [Staff Physician] - - Critical Care Critical Care Time: No Attestation: On 04/01/22, the high probability of a clinically significant, sudden or life threatening deterioration of the following system(s) required my full and direct attention, intervention and personal management. The time I documented below is in addition to time spent performing reported procedures but includes the following listed in this critical care notation. Medical Decision Making - Medical Records Medical records reviewed: Yes: I reviewed the patient's medical records. - Endy Inquiry Pt receiving controlled substance: No Vital Signs: 04/01/22 13:09 04/01/22 13:31 Temperature 98.1 F Temperature Source Oral Pulse Rate 87 Pulse Rate [Right Radial] 84 Respiratory Rate 18 Blood Pressure 130/84 Blood Pressure [Right Arm] 145/94 H Blood Pressure Mean 98 Blood Pressure Mean [Right Arm] 111 Blood Pressure Source [Right Arm] Automatic Cuff Blood Pressure Position [Right Arm] Sitting 02 Sat by Pulse Oximetry 95 95 Oxygen Delivery Method Room Air - Lab Data Lab Results 04/01/22 15:05: WBC 10.9 H, RBC 5.25, Hgb 13.9 L, Hct 44.2, MCV 84.3, MCH 26.4 L, MCHC 31.4 L, RDW 13.6, Plt Count 420, MPV 7.3 L, Neut % (Auto) 72.8, Lymph % (Auto) 18.0, [place] % (Auto) 6.9, Eos % (Auto) 1.6, Baso % (Auto) 0.6, Neut # (Auto) 7.9 H, Lymph # (Auto) 2.0, [place] # (Auto) 0.8, Eos # (Auto) 0.2, Baso # (Auto) 0.1 04/01/22 15:05: Sodium 138, Potassium 4.4, Chloride 103, Carbon Dioxide 30, Anion Gap 9.4, BUN 11, Creatinine 0.60 L, Estimated Creat Clear 195, Estimated GFR 160, Est GFR ( Amer) 194, Glucose 113 H, Calcium 9.2, Total Bilirubin 0.3, AST 27, ALT 34, Alkaline Phosphatase 127 H, Total Protein 8.1, Albumin 4.3, Globulin 3.8 H, Albumin/Globulin Ratio 1.1, Lipase 22 L Result diagrams: 04/01/22 15:05 04/01/22 15:05 - CT Data CT Scan: Abdomen, Pelvis Time Received: 15:[address] Reviewed: Yes: I have reviewed the patient's CT results, I have viewed the radiologist's interpretation Findings Narrative: .IMPRESSION: No renal or ureteral stone, or hydronephrosis. Wall thickening of the rectum with adjacent inflammation which may represent colitis. Neoplasm is not excluded but thought less likely. - Reevaluation(s) Time: 15:41 Reevaluation #1: On reevaluation, patient is feeling better. Repeat abdominal examination is benign. No evidence of acute abdomen. CT scan is consistent with colitis. Rectal exam did not show any foreign bodies or hemorrhoids or fissures. I do believe symptoms are consistent with colitis. Patient will follow-up with general surgeon. Given strict return precautions. Verbalized understanding. Medical Decision Narrative: 26-year-old male presented to the emergency department with some constipation and bleeding. Patient's symptoms are concerning for possible obstruction. We did place patient again rectal exam will be performed under nursing supervision. Work-up initiated. General Adult HPI - General Chief complaint: GI Bleed Stated complaint: constipated Time Seen by Provider: 04/01/22 13:50 Mode of Arrival: Ambulatory Limitations: No Limitations Description of Symptoms (Recalled from ER Triage Doc. by RN): Pt reports began having lower back pain friday afternoon, states he attemtped to have a bm, states was unable to have BM. Pt reports friday still not able to have BM, took laxatives, states still no BM. Pt reports today he had rect
--- NOTE | 2022-04-01 14:56 | PC.NURSE ---
rounded on patient. patient asked if he could have some ice water, checked with the ER Doctor and he advised that patient could have some ice chips. gave patient the ice chips and there were no other nedds at this time.
--- NOTE | 2022-04-01 15:00 | PC.NURSE ---
contacted lab for blood draw on pt.
[2022-04-01 15:17] LABS: Basophils # 0.1 K/mm3 (0-0.2); Basophils % 0.6 % (0.1-2.0); Eosinophils # 0.2 K/mm3 (0.0-0.4); Eosinophils % 1.6 % (0.1-12.0); Hematocrit 44.2 % (42.0-52.0); Hemoglobin 13.9 g/dL (14.1-18.0); Mean Corpuscular HGB Conc 31.4 g/dL (31.8-35.4); Mean Corpuscular Hemoglobin 26.4 pg (27.0-31.2); Mean Corpuscular Volume 84.3 fl (80-94); Mean Platelet Volume 7.3 fl (7.4-10.4); Monocytes # 0.8 K/mm3 (0.1-1.0); Monocytes % 6.9 % (1.7-9.3); Neutrophils # 7.9 K/mm3 (1.8-7.8); Neutrophils % 72.8 % (37.0-80.0); Platelet Count 420 K/mm3 (142-424); Red Blood Count 5.25 M/mm3 (4.60-6.20); Red Cell Distribution Width 13.6 % (11.5-17.5); White Blood Count 10.9 K/mm3 (4.8-10.8)
[2022-04-01 15:30] LABS: Chloride 103 mmol/L (98-107); Sodium 138 mmol/L (136-145)
[2022-04-01 15:31] LABS: Potassium 4.4 mmoL/L (3.5-5.1)
[2022-04-01 15:33] LABS: Alanine Aminotransferase 34 U/L (12-78); Albumin Level 4.3 g/dl (3.5-5.0); Albumin/Globulin Ratio 1.1 (1.1-1.8); Alkaline Phosphatase 127 U/L (38-126); Anion Gap 9.4 mEq/L (5-15); Aspartate Amino Transferase 27 U/L (17-59); Bilirubin,Total 0.3 mg/dl (0.2-1.3); Blood Urea Nitrogen 11 mg/dl (9-20); Calcium 9.2 mg/dl (8.4-10.2); Carbon Dioxide 30 mmol/L (22.0-30.0); Creatinine Clearance Estimated 195 mL/min (50-200); Estimated Glomerular Filt Rate 160 ml/min (>60); GFR (African American) 194 ML/MIN (>60); Globulin 3.8 g/dL (1.3-3.2); Glucose 113 mg/dl (74-100); Lipase 22 U/L (23-300); Total Protein,Serum 8.1 g/dl (6.3-8.2)
--- NOTE | 2022-04-01 15:36 | PC.NURSE ---
ZENAIDA BARRETO at going over test results with pt at this time
[2022-04-01 15:40] VITALS: BP 135/80; PULSE 80; RESP 18; TEMP 36.9; O2SAT 99
== END 2022-04-01 15:40 | disposition home or self-care (01) ==
PROVIDERS: Emergency Provider Emergency Medicine; PCP Family Medicine
DX: K52.9 Noninfective gastroenteritis and colitis, unspecified (principal); K59.00 Constipation, unspecified
CPT/HCPCS: 36415; 74176; 80053; 83690; 85025; 99284

== ENCOUNTER 2022-07-27 04:35 | Emergency (ER) | payer BC, SELFPAY ==
[2022-07-27 04:36] VITALS: BP 142/90; PULSE 103; RESP 22; TEMP 37; O2SAT 95; BMI 36.9
[2022-07-27 04:52] LABS: Strep Scrn Group A (Rapid) Negative (Negative)
--- NOTE | 2022-07-27 05:02 | HMH.EDGENADL ---
Discharge Plan Disposition Patient Disposition: Home, Self-Care Condition: Good Chief Complaint: Upper Respiratory Infection Prescriptions Prescriptions: No Action losartan 50 mg tablet 50 mg PO DAILY meloxicam 7.5 mg tablet 7.5 mg PO DAILY 30 Days Qty: 30 2RF metronidazole 500 MG tablet 0 mg PO Q8 Qty: 30 0RF ciprofloxacin HCl 500 MG tablet 500 mg PO BID Qty: 20 0RF Referrals Follow up/Referrals: Leah Mackay [Primary Care Provider] - See instructions Activity Restrictions/Add. Instructions Additional Instructions/Restrictions: Follow-up with your primary care provider regarding this visit to the emergency department to establish care and ensure improvement of symptoms. Take Tylenol and Motrin every 6 hours with food and water to prevent GI upset and kidney problems. If you have inability to tolerate food or drink, difficulty breathing, or any other concerning signs or symptoms, return to the ED for further evaluation. Clinical Impressions Clinical Impression: Pharyngitis Discharge ED Provider: Jerry Reddy General Adult HPI General Chief complaint: Upper Respiratory Infection Stated complaint: SOA Time Seen by Provider: 07/27/22 04:50 History of Present Illness HPI narrative: This is a 26-year-old male with history of asthma presenting with sore throat. Patient states that Friday, 5 days prior to arrival, he began having sore throat. Since that time, he has developed difficulty swallowing secondary to pain, but has been able to tolerate food after using throat sprays and cough drops. He thinks he had 1 day of fever, but has not had any fevers or chills since that time. Denies nausea, vomiting, chest pain, shortness of breath, wheezing, stridor, difficulty or pain with range of motion of neck, or any other concerning symptoms. He has been trying to treated at home, but it has not gotten better since that time. Related Data Home Medications Medication Instructions Recorded Confirmed losartan 50 mg tablet 50 mg PO DAILY 09/05/20 10/23/20 Previous Rx's Medication Instructions Recorded meloxicam 7.5 mg tablet 7.5 mg PO DAILY pain 30 days #30 09/05/20 tabs ciprofloxacin HCl 500 mg tablet 500 mg PO BID #20 tabs 04/01/22 metronidazole 500 mg tablet 0 mg PO Q8 #30 tabs 04/01/22 Allergies Allergy/AdvReac Type Severity Reaction Status Date / Time cefaclor [From [facility]] Allergy Unknown Verified 10/23/20 14:38 [facility] Disclaimer: The information contained in this section may have been updated after the patient was seen, as this information can be updated by other users. Social History Smoking Status: Never smoker alcohol intake: never substance use type: denies use current occupational status: other Travel in the last 8 weeks: None ROS Obtained: Yes All systems reviewed & no additional complaints except as documented Physical Exam General General appearance: alert and in no apparent distress Head Head exam: atraumatic, normocephalic and normal inspection Eye Eye exam: Present normal appearance, PERRL and EOMI ENT ENT exam: Present normal exam, normal oropharynx, mucous membranes moist, TM's normal bilaterally and normal external ear exam Expanded ENT Exam Throat exam: Present tonsillar erythema, tonsillomegaly and tonsillar exudate; Absent R peritonsillar mass or L peritonsillar mass Neck Neck exam: Present normal inspection, full ROM and trachea midline; Absent meningismus or lymphadenopathy Chest Chest inspection: Present normal inspection and symmetric chest wall rise; Absent tenderness Respiratory Respiratory exam: Present normal lung sounds bilaterally; Absent respiratory distress, wheezes or stridor Cardiovascular Cardiovascular exam: Present regular rate and normal rhythm; Absent JVD Abdominal Exam Abdominal exam: Present soft and normal bowel sounds; Absent distention, tenderness or guarding Extremities Exam Extremities exam: Present nor
[2022-07-27 05:56] LABS: Coronavirus 19, PCR Not Detected (NotDetected); Influenza A, PCR Not Detected (NotDetected); Influenza B, PCR Not Detected (NotDetected)
[2022-07-27 06:35] VITALS: BP 138/81; PULSE 91; RESP 20; TEMP 37; O2SAT 96
== END 2022-07-27 06:37 | disposition home or self-care (01) ==
PROVIDERS: Emergency Provider Emergency Medicine; PCP Family Medicine
DX: J02.9 Acute pharyngitis, unspecified (principal); J45.909 Unspecified asthma, uncomplicated
CPT/HCPCS: 87430; 99282; C9803; U0003; U0005

== ENCOUNTER 2023-09-27 10:11 | Emergency (ER) | payer BC, SELFPAY ==
[2023-09-27 10:12] VITALS: BP 141/75; PULSE 102; RESP 20; TEMP 36.8; O2SAT 99; BMI 52.9
--- NOTE | 2023-09-27 10:24 | PC.NURSE ---
DR BOWERS AT BEDSIDE
--- NOTE | 2023-09-27 10:25 | CT_ITS ---
PROCEDURE INFORMATION: Exam: CT Abdomen And Pelvis Without Contrast Exam date and time: 09/27/2023 10:42 AM Age: 28 years old Clinical indication: Other: Pain and hematuria after passing stone; Additional info: Passed stone , persistent pain and hematuria TECHNIQUE: Imaging protocol: Computed tomography of the abdomen and pelvis without contrast. Radiation optimization: All CT scans at this facility use at least one of these dose optimization techniques: automated exposure control; mA and/or kV adjustment per patient size (includes targeted exams where dose is matched to clinical indication); or iterative reconstruction. COMPARISON: CT ABDOMEN PELVIS WO CON 04/01/2022 2:13 PM FINDINGS: Liver: Hepatic steatosis. Hepatomegaly measuring 20 cm. Gallbladder and bile ducts: Normal. No calcified stones. No ductal dilation. Pancreas: Normal. No ductal dilation. Spleen: Normal. No splenomegaly. Adrenal glands: Normal. No mass. Kidneys and ureters: Normal. No hydronephrosis. Stomach and bowel: Unremarkable. No obstruction. No mucosal thickening. Appendix: No evidence of appendicitis. Intraperitoneal space: Unremarkable. No free air. No significant fluid collection. Vasculature: Unremarkable. No abdominal aortic aneurysm. Lymph nodes: Unremarkable. No enlarged lymph nodes. Urinary bladder: Moderate inflammatory fat stranding surrounding the urinary bladder, concerning for cystitis. Reproductive: Unremarkable as visualized. Bones/joints: Unremarkable. No acute fracture. Soft tissues: Unremarkable. IMPRESSION: 1. Moderate inflammatory fat stranding surrounding the urinary bladder, concerning for cystitis. 2. Hepatic steatosis. Hepatomegaly measuring 20 cm. 3. No nephroureterolithiasis or hydronephrosis.
--- NOTE | 2023-09-27 10:28 | HMH.EDGENADL ---
Discharge Plan Disposition Patient Disposition: Home, Self-Care Prescriptions Prescriptions: New sulfamethoxazole-trimethoprim [Bactrim DS] 800-160 mg tablet 1 tab PO BID 10 Days Qty: 20 0RF No Action losartan 50 mg tablet 50 mg PO DAILY meloxicam 7.5 mg tablet 7.5 mg PO DAILY 30 Days Qty: 30 2RF metronidazole 500 MG tablet 0 mg PO Q8 Qty: 30 0RF ciprofloxacin HCl 500 MG tablet 500 mg PO BID Qty: 20 0RF Referrals Follow up/Referrals: Kamlesh Mcdermott MD [Staff Physician] - See instructions Leah Mackay [Primary Care Provider] - See instructions Activity Restrictions/Add. Instructions Additional Instructions/Restrictions: Your story of a recently passed stone ongoing discomfort and hematuria please follow-up with the urologist to ensure resolution of your symptoms. A referral has been made to Dr. Mcdermott. Your CT scan showed inflammatory changes in your bladder consistent with cystitis. We will be treating you for a complicated urinary tract infection please return with any high fevers or other concerns. Clinical Impressions Clinical Impression: Cystitis, Pain in urethra, Ureterolithiasis, Complicated UTI (urinary tract infection) Instructions Patient Instructions: DI for Urinary Tract Infection (UTI), DI for Urinary Tract Infection in Children Discharge ED Provider: Eufemia Luciano General Adult HPI General Chief complaint: Urogenital-Male Stated complaint: bleeding from urethra painful urintation Time Seen by Provider: 09/27/23 10:22 History of Present Illness HPI narrative: Patient is a 28-year-old male presents today with hematuria. States he felt fine but this morning passed a stone with urination did not have any preceding symptoms prior to that but afterwards has had some significant dysuria and ongoing hematuria. Hematuria is gross hematuria. No preceding urethritis symptoms including purulence coming from his penis dysuria etc. No exposure to gonorrhea chlamydia etc. No history of kidney stones. No flank pain or abdominal pain remains in his region in the bladder and urethral aspect. Related Data Home Medications Medication Instructions Recorded Confirmed losartan 50 mg tablet 50 mg PO DAILY 09/05/20 10/23/20 Previous Rx's Medication Instructions Recorded meloxicam 7.5 mg tablet 7.5 mg PO DAILY pain 30 days #30 09/05/20 tabs ciprofloxacin HCl 500 mg tablet 500 mg PO BID #20 tabs 04/01/22 metronidazole 500 mg tablet 0 mg PO Q8 #30 tabs 04/01/22 sulfamethoxazole 800 1 tab PO BID 10 days #20 tabs 09/27/23 mg-trimethoprim 160 mg tablet (Bactrim DS) Allergies Allergy/AdvReac Type Severity Reaction Status Date / Time cefaclor [From Ceclor] Allergy Unknown Verified 10/23/20 14:38 [facility] Disclaimer: The information contained in this section may have been updated after the patient was seen, as this information can be updated by other users. Social History Smoking Status: Never smoker alcohol intake: never substance use type: denies use current occupational status: other Travel in the last 8 weeks: None ROS Obtained: Yes All systems reviewed & no additional complaints except as documented Physical Exam General General appearance: alert Respiratory Respiratory exam: Present normal lung sounds bilaterally Cardiovascular Cardiovascular exam: Present regular rate Abdominal Exam Abdominal exam: Present soft; Absent distention or tenderness Neurological Exam Neurological exam: Present alert Medical Decision Making Endy Inquiry Pt receiving controlled substance: No Vital Signs: 09/27/23 10:12 09/27/23 11:32 Temperature 98.3 F Temperature Source Oral Pulse Rate 109 H Pulse Rate [Right] 102 H Respiratory Rate 20 Blood Pressure 129/108 H Blood Pressure [Right Arm] 141/75 H Blood Pressure Mean [Right Arm] 97 Blood Pressure Source [Right Arm] Automatic Cuff 02 Sat by Pulse Oximetry 99 95 Oxygen Delivery Method Room Air Room Air Lab Data Lab results reviewed: Yes I reviewed the patient's lab results. Lab Results 09/27/23 10:22: Urine Color Red, Urine Appearance Turbid, Urine pH 7.5, Ur Specific [place] 1.020, Urine Protein 3+, Urine Glucose (UA) Trace, Urine Ketones Trace, Urine Blood 3+, Urine Nitrate Positive, Urine Bilirubin Negative, Urine Urobilinogen 4.0, Ur Leukocyte Esterase 1+ A, Urine RBC Tntc, Urine WBC Occasional, Ur Squamous Epith Cells Occasional, Urine Bacteria Trace 09/27/23 11:11: Sodium 135 L, Potassium 4.8, Chloride 100, Carbon Dioxide 28, Anion Gap 11.8, BUN 12, Creatinine 0.70, Estimated Creat Clear 164, Estimated GFR 132, Est GFR ( Amer) 160, Glucose 127 H, Calcium 8.7, Total Bilirubin 0.6, AST 46, ALT 50, Alkaline Phosphatase 126, Total Protein 8.2, Albumin 4.4, Globulin 3.8 H, Albumin/Globulin Ratio 1.2 09/27/23 11:11 Orders (Tests/Meds): ED MEDICATIONS Discontinued Medications Generic Name Dose Route Start Last Admin Trade Name Bryant PRN Reason Stop Dose Admin Lactated Ringer's 1,000 mls @ 999 mls/hr 09/27/23 10:30 09/27/23 11:28 Lactated Ringer's 1000 Ml Bag IV 09/27/23 11:30 999 mls/hr .Q1H1M [place] Administration Ketorolac Tromethamine 15 mg 09/27/23 10:25 09/27/23 11:28 Ketorolac 30mg/Ml Vial IV 09/27/23 10:26 15 mg ONCE ONE Administration ORDERS Category Date Time Status CT abdomen pelvis wo con Stat Cat Scan 09/27/23 10:25 Completed CBC w/Auto Diff [Complete Blood Count Auto Diff] Stat Lab 09/27/23 11:30 Received CMP [Comprehensive Metabolic Panel] Stat Lab 09/27/23 11:11 Completed PT/PTT Stat Lab 09/27/23 11:30 Received UA [Urinalysis and Microscopic] Stat Lab 09/27/23 10:22 Completed Urine Culture Stat Micro 09/27/23 10:22 Received Medical Decision Narrative: Patient is a 28-year-old male who presents with hematuria after recently passed stone now he is having some urethral discomfort. Possible it was some localized trauma from the passage of the stone that is causing this. However he could have retained stone or more stones in his bladder or urethra in particular. Will get a CT scan that is noncontrasted to further evaluate for this. Unlikely that this is infectious from a urethritis standpoint. Will give him some IV fluids and Toradol and reassess. If his workup is negative we will have him follow-up with urology to ensure resolution of his symptoms. Reassessment 11:[address] scan performed which I personally interpreted which shows no stone or retained stone. There is evidence of inflammatory changes around the bladder consistent with cystitis. Patient's urinalysis also positive for leukocyte esterase. Patient however claims that he passed a stone earlier today. Overall clinical picture is uncertain at this point. Will have him follow-up with urology for treatment of his complicated urinary tract infection To ensure resolution. Bactrim has been prescribed to the patient culture of his urine has been sent. Patient was discharged in stable condition. Critical Care Critical Care Time Critical Care Time: No
[2023-09-27 10:41] LABS: Microscopic, Urine URINE MICROSCOPIC (MICROSCOPIC)
[2023-09-27 10:44] LABS: Appearance,Urine TURBID (Clear); Bilirubin,Urine Negative (Negative); Blood, Urine 3+ (Negative); Color,Urine RED (Yellow); Glucose,Urine (UA) TRACE (Negative); Ketones,Urine TRACE (Negative); Leukocyte Esterase,Urine 1+ (Negative); Nitrate,Urine POSITIVE (Negative); PH,Urine 7.5 (5.0-8.5); Protein,Urine 3+ (Negative)
[2023-09-27 11:07] LABS: Bacteria,Urine Trace /lpf; RBC,Urine TNTC #/hpf (0-3); Squamous Epithelial Cell,Urine Occasional #/hpf (0-5); WBC,Urine Occasional #/hpf (0-3)
[2023-09-27] MEDS: LACTATED RINGERS 1000ML 1,000 ML 999 ML IV (11:28)
[2023-09-27] MEDS: KETOROLAC 30MG/ML VIAL 15 MG IV (11:28)
[2023-09-27 11:29] LABS: Chloride 100 mmol/L (98-107); Sodium 135 mmol/L (136-145)
[2023-09-27 11:30] LABS: Potassium 4.8 mmoL/L (3.5-5.1)
[2023-09-27 11:32] VITALS: BP 129/108; PULSE 109; O2SAT 95
[2023-09-27 11:32] LABS: Alanine Aminotransferase 50 U/L (12-78); Albumin Level 4.4 g/dl (3.5-5.0); Albumin/Globulin Ratio 1.2 (1.1-1.8); Alkaline Phosphatase 126 U/L (38-126); Anion Gap 11.8 mEq/L (5-15); Aspartate Amino Transferase 46 U/L (17-59); Bilirubin,Total 0.6 mg/dl (0.2-1.3); Blood Urea Nitrogen 12 mg/dl (9-20); Calcium 8.7 mg/dl (8.4-10.2); Carbon Dioxide 28 mmol/L (22.0-30.0); Creatinine Clearance Estimated 164 mL/min (50-200); Estimated Glomerular Filt Rate 132 ml/min (>60); GFR (African American) 160 ML/MIN (>60); Globulin 3.8 g/dL (1.3-3.2); Glucose 127 mg/dl (74-100); Total Protein,Serum 8.2 g/dl (6.3-8.2)
--- NOTE | 2023-09-27 11:34 | PC.NURSE ---
Rounded on pt. No needs or complaints at this time. Call light within reach.
--- NOTE | 2023-09-27 11:41 | PC.NURSE ---
DR BOWERS AT BEDSIDE TO UPDATE PT
[2023-09-27 11:42] VITALS: BP 129/108; PULSE 100; RESP 18; TEMP 36.7
[2023-09-27 11:43] LABS: Basophils % 0.2 % (0.1-2.0); Eosinophils # 0.3 K/mm3 (0.0-0.4); Eosinophils % 2.5 % (0.1-12.0); Hematocrit 45.5 % (42.0-52.0); Hemoglobin 15.1 g/dL (14.1-18.0); Lymphocytes # 1.2 K/mm3 (0.7-4.5); Lymphocytes % 10.9 % (10-50); Mean Corpuscular HGB Conc 33.3 g/dL (31.8-35.4); Mean Corpuscular Hemoglobin 27.5 pg (27.0-31.2); Mean Corpuscular Volume 82.8 fl (80-94); Mean Platelet Volume 7.3 fl (7.4-10.4); Monocytes # 0.7 K/mm3 (0.1-1.0); Monocytes % 6.4 % (1.7-9.3); Neutrophils # 9.1 K/mm3 (1.8-7.8); Platelet Count 309 K/mm3 (142-424); Red Blood Count 5.49 M/mm3 (4.60-6.20); Red Cell Distribution Width 14.3 % (11.5-17.5); White Blood Count 11.4 K/mm3 (4.8-10.8)
[2023-09-27 11:56] LABS: Activated Partial Thrombo Time 27.3 seconds (22.8-30.6); INR 0.92 (0.9-1.1)
== END 2023-09-27 11:49 | disposition home or self-care (01) ==
PROVIDERS: Emergency Provider Student in an Organized Health Care Education/Training Program; PCP Family Medicine
DX: N30.01 Acute cystitis with hematuria (principal); N20.1 Calculus of ureter; R30.0 Dysuria
CPT/HCPCS: 74176; 80053; 81001; 85025; 85610; 85730; 87086; 96361; 96374; 99285

== ENCOUNTER 2025-02-17 14:31 | Outpatient (CLI) | payer BC, SELFPAY ==
--- OUTSIDE RECORDS SUMMARY | 2025-02-17 14:34 | XMS_ITS | Encounter Summary ---
Author [place] [address] Care Team Providers Care Overnight Babysitter Name Role Phone Leah Mackay MD Primary Care Provider [phone] Reason for Visit * Reason Onset Date Comments Medication Refill Central Patient Navigator Outreach 01/23/2025 med refill - 30 Encounter Details Date Type Department Care Team (Late st Contact Info) Description 01/23/2025 Refill [facility] [address] [place] [address] Niko Higginbotham MD [address] [place], [place] [id number] Medication Refill; Central Patient Navigator Outreach (med refill - 30) Social History Tobacco Use Types Packs/Day Years Used Date Smoking Tobacco: Never Smokeless Tobacco: Never Alcohol Use Standard Drinks/Week Comments No 0 (1 standard drink = 0.6 oz pur e alcohol) Overall Financial Resource Strain (CARDIA) Answe r Date Recorded How hard is it for you to pa y for the very basics like food, housing, medical care, and heating? Somewhat hard 10/09/2023 PHQ-2 Answer Date Recorded PHQ-2 Total Score 0 06/19/2024 Exercise Vital Sign Answer Date Recorde d On average, how many days pe r week do you engage in moderate to strenuous exercise (like a brisk walk)? 1 day 10/09/2023 On average, how many minutes do you engage in exercise at this level? 50 min 10/09/2023 Hunger Vital Sign Answer Date Recorded Within the past 12 months, y ou worried that your food would run out before you got the money to buy more. Sometimes true Within the past 12 months, t he food you bought just didn't last and you didn't have money to get more. Never true PRAPARE - Transportation Answer Date Re corded In the past 12 months, has l ack of transportation kept you from medical appointments or from getting medications? Yes 09/19 In the past 12 months, has l ack of transportation kept you from meetings, work, or from getting things needed for daily living? Yes 10/09/2023 Housing Stability Vital Sign Answer Jeferson e Recorded In the last 12 months, was t here a time when you were not able to pay the mortgage or rent on time? No 10/09/2023 In the last 12 months, how many places have you lived? 1 10/09/2023 In the last 12 months, was t here a time when you did not have a steady place to sleep or slept in a intermediate (including now)? No 10/09/2023 Sex and Gender Information Value Date Recorded Sex Assigned at Not on file Legal Sex Male 7:56 AM EDT Gender Identity Not on file Sexual Orientation Not on file documented as of this encounter Functional Status * Is the person deaf or does he/she have serious difficulty hearing? Answer Date of Assessment Author No 06/19/2024 10:56 AM Julianna Jeffers RMA * Is the person blind or does he/she have serious difficulty seeing even when wearing glasses? Answer Date of Assessment Author No 06/19/2024 10:56 AM Julianna Jeffers RMA * Does this person have serious difficulty walking or climbing stairs? Answer Date of Assessment Author No 06/19/2024 10:56 AM Julianna Jeffers RMA * Does this person have difficulty dressing or bathing? Answer Date of Assessment Author No 06/19/2024 10:56 AM Julianna Jeffers RMA * Because of a physical, mental or emotional condition, does this person have difficulty doing errands alone such as visiting a doctor's office or shopping? Answer Date of Assessment Author No 06/19/2024 10:56 AM Julianna Jeffers RMA documented as of this encounter Mental Status * Because of a physical, mental or emotional condition, does this person have serious difficulty concentrating, remembering or making decisions? Answer Entry Date Author No 06/19/2024 10:56 AM EDT Julianna Stanley RMA documented in this encounter Ordered Prescriptions Prescription Sig Dispense Quantity Refills Last Filled Start Date End Date famotidine (PEPCID) 40 mg Oral TabletIndications: Gastroesophageal reflux disease with esophagitis without hemorrhage TAKE 1 TABLET BY MOUTH ONCE DAILY IN THE EVENING 30 Tablet 01/25/2025 documented in this encounter Miscellaneous Notes * Telephone Encounter - Leah Bajwa - 01/25/2025 9:01 AM EDT Patient Outreach: Medication refill appointment, meera count: Med Refill 30 Primary Care Attempt Count: 1st Care Gaps Addressed marketing assistant retail division: Annual Wellness Visit Outcome: [employer] Message Sent and No answer/busy. Full Call back number: [phone] * Telephone Encounter - Lola Roger CPhT - 01/25/2025 6:55 AM EDT famotidine (PEPCID) 40 mg Oral Tablet Future Visit: n/a Last Assessed Visit: n/a Follow-Up Date: n/a Appointment protocol failed. One meera supply sent to pharmacy. Routed to Patient Navigators. documented in this encounter Plan of Treatment Not on file documented as of this encounter Goals Goal Patient Goal Type Associated Problems Recent Progress Patient-Stated? Author Blood Pressure < 140/90 Blood Pressure 132/64( 025 9:35 AM EST) No Natty, Chevy, DO Eat better, exercise, reach an ideal body weight General No Paris Stewart RMA documented as of this encounter Visit Diagnoses Diagnosis Gastroesophageal reflux disease with esophagitis without hemorrhage documented in this encounter Discontinued Medications Medication Sig Discontinue Reason Start Date End Da te famotidine (PEPCID) 40 mg Oral TabletIndications:Gastroe sophageal reflux disease with esophagitis without hemorrhage Take 1 Tablet by mouth every evening. 10/18/2023 01/25/2025 documented as of this encounter Care Teams Overnight Babysitter Relationship Specialty Start Date End Date Leah Mackay MD [address] [place] [address] PCP - General Family Medicine 01/05/16 documented as of this encounter
--- OUTSIDE RECORDS SUMMARY | 2025-02-17 14:34 | XMS_ITS | Clinical Summary ---
Author Organization [facility] Address [address] [place] [address] Phone Care Team Providers Care Set Up Mechanic [employer] Name Role Phone Leah Mackay MD Primary Care Provider [phone] Allergies Active Allergy Reactions Criticality Noted Date Comments Cefaclor Hives 06/05/2010 House Dust Cough 09/11/2023 Medications meloxicam (MOBIC) 7.5 mg Oral TabletIndication s:Generalized joint pain TAKE 1 TABLET BY MOUTH DAILY FOR PAIN 30 Tablet 5 05/13/20 22 Active nystatin (MYCOSTATIN) Top Cream Apply topically 2 times daily. 30 g 2 05/17/20 23 Active UNABLE TO FIND Med Name: fiber supplement daily Active multivitamin with folic acid (THERAGRAN) 400 mcg Oral Tablet Take by mouth daily. Active cetirizine (ZYRTEC) 10 mg Oral TabletIndication s:Seasonal allergic rhinitis, unspecified trigger Take 1 Tablet by mouth nightly. 30 Tablet 6 10/18/19 24 Active lisinopriL-hydro chlorothiazide (PRINZIDE;ZESTOR ETIC) 10-12.5 mg Oral TabletIndication s:Essential hypertension Take 1 Tablet by mouth daily. 30 Tablet 5 11/24/19 24 Active mirabegron (MYRBETRIQ) 50 mg Oral Tablet Sustained Release 24 hr Take 1 Tablet by mouth daily. 90 Tablet 3 09/09/19 25 Active solifenacin (VESICARE) 5 mg Oral Tablet Take 1 Tablet by mouth daily. 90 Tablet 3 09/09/19 25 Active famotidine (PEPCID) 40 mg Oral TabletIndication s:Gastroesophage al reflux disease with esophagitis without hemorrhage TAKE 1 TABLET BY MOUTH ONCE DAILY IN THE EVENING 30 Tablet 01/26/20 25 Active famotidine (PEPCID) 40 mg Oral TabletIndication s:Gastroesophage al reflux disease with esophagitis without hemorrhage Take 1 Tablet by mouth every evening. 90 Tablet 2 10/18/19 24 025 Discontinued Active Problems Patient Care Coordination No te Formatting of this note migh t be different from the original. Utilization audit completed by Marina Jj RN on 10/08/2023. Problem Noted Date Diagnosed Date History of asthma 06/19/2024 Assessment & Plan (06/20/2024 10:15 PM EST): Orders: CBC WITH DIFF; Future COMPREHENSIVE METABOLIC PANEL; Future HEMOGLOBIN A1C; Future LIPID SCREEN; Future TSH REFLEX; Future VITAMIN B12/ FOLIC ACID; Future VITAMIN D 25 HYDROXY; Future Incarcerated umbilical hernia 07/03/2023 Essential hypertension 01/02/2019 Encounters Date Type Department Care Team Description 01/23/2025 Refill [facility] [address] [place] [address] Niko Higginbotham MD Medication Refill; Central Patient Navigator Outreach (med refill - 30) from Last 3 Months Immunizations Immunization Administration Dates Next Due Flucelvax 05/05/2024 Hepatitis B (Recombinant), Adjuvanted 03/01/2023 Hepatitis B, Adult 06/19/2024 Influenza Vaccine Quadrivalent 05/19/2021 Influenza Vaccine Quadrivalent PF 05/18/2022,,11/10/2017 Influenza Vaccine, Unspecified Formulation 05/10,05/19/2021 Influenza, Injectable, MDCK, PF, Quadrivalent 06/02/2020 Moderna SARS-CoV-2 Vaccine 1 2+ Yrs (Light blue border) 12/24/2020,11/26/2020 Tdap 06/02/2020 Surgical History Surgery Date Site/Laterality Comments ABDOMEN SURGERY 2018? DENTAL SURGERY UMBILICAL HERNIA REPAIR 08/29/2023 N/A Open umbilical hernia repair; Surgeon: Catarino Trujillo MD; Location: [facility] MAIN OR; Service: General CYSTOSCOPY 09/02/2024 in office procedure, Dr. Gomez Medical History Medical History Date Comments Hypertension Asthma Heartburn Arthritis left ankle Family History Medical History Relation Name Comments Arrhythmia Father Arthritis Father Asthma Father Heart Disease Father High Blood Pressure Father Heart Disease Maternal Grandfather High Blood Pressure Maternal Grandfather High Cholesterol Maternal Grandfather Pacemaker Maternal Grandfather Cancer Maternal Grandmother Heart Disease Maternal Grandmother High Blood Pressure Maternal Grandmother Arthritis Mother Asthma Mother Heart Disease Mother High Blood Pressure Mother No Known Problems Paternal Grandfather Cancer Paternal Grandmother Heart Disease Paternal Grandmother High Blood Pressure Paternal Grandmother Asthma Sister Anesth Problems Neg Hx Relation Name Status Comments Father Alive Maternal Grandfather Maternal Grandmother Mother Alive Paternal Grandfather Paternal Grandmother Sister Alive Social History Tobacco Use Types Packs/Day Years Used Date Smoking Tobacco: Never Smokeless Tobacco: Never Tobacco Cessation:Counseling Given: Not Answered Alcohol Use Standard Drinks/Week Comments No 0 [...] place to sleep or slept in a long term (including now)? No 10/09/2023 Sex and Gender Information Value Date Recorded Sex Assigned at Not on file Legal Sex Male 7:56 AM EDT Gender Identity Not on file Sexual Orientation Not on file Obstetrics History Last Filed Vital Signs Vital Sign Reading Time Taken Comments Blood Pressure 132/64 09/09/2024 9:35 AM EST Pulse 108 09/09/2024 9:35 AM EST Temperature 36.7 C (98 F) 09/09/2024 9:35 AM EST Respiratory Rate 16 09/01/2024 10:1 1 AM EST Oxygen Saturation 96% 09/09/2024 9:35 AM EST Inhaled Oxygen Concentration - - Weight 188.6 kg (415 lb 12.8 oz) 09/09/2024 9:35 AM EST Height 180.3 cm (5' 11 ) 09/09/2024 9:35 AM EST Body Mass Index 57.99 09/09/2024 9:35 AM EST Plan of Treatment Health Maintenance Due Date Last Done Comments Hepatitis B Vaccine (3 of 3 - 19+ 3-dose series) 08/14/2024 06/19/2024, 03/01/2023 Annual Wellness Exam 10/17/2024 10/18/2023, 01/05/20 16 Influenza Vaccine (#1) 2025 4, 05/10/2023, 05/18/2022, Additional history exists DTaP/TDaP/Td (2 - Td or Tdap) 06/02/2030 06/02/2020 COVID-19 Vaccine Completed 05/05/2024, , 12/24/2020, Additional history exists Meningococcal B Vaccine Aged Out No l onger eligible based on patient's age to complete this topic Pneumococcal Vaccine 0-49 Aged Out No longer eligible based on patient's age to complete this topic Goals Goal Patient Goal Type Associated Problems Recent Progress Patient-Stated? Author Blood Pressure < 140/90 Blood Pressure 132/64(01/23/2 025 9:35 AM EST) No Natty, Chevy, DO Eat better, exercise, reach an ideal body weight General No Paris Stewart, RMA Insurance ANTHEM PPO ANTHEM PPO Care Teams Set Up Mechanic [employer] Machine Relationship Specialty Start Date End Date Leah Mackay MD [address] [place] [address] PCP - General Family Medicine 01/05/16
--- NOTE | 2025-02-17 15:00 | US_ITS ---
FINAL REPORT TECHNIQUE: Ultrasound images of the bladder were obtained. CLINICAL HISTORY: UTI COMPARISON: None FINDINGS: ULTRASOUND BLADDER WITH POST VOID RESIDUAL Bladder volumes were estimated based on 3 dimensional measurements, pre- and postvoid. The exam is compromised secondary to body habitus. Prevoid bladder volume: 133 mls Postvoid bladder volume: 2 mls IMPRESSION: Estimated bladder volumes as above with no significant postvoid residual. Reviewed, Interpreted and Dictated by Naif Owens MD Transcribed by Lorena Alex Authenticated and . [facility]
== END 2025-02-17 23:59 | disposition home or self-care (01) ==
LOC: RAD 14:32
PROVIDERS: PCP Family Medicine; Visit Provider Urology
DX: N39.0 Urinary tract infection, site not specified (principal)
CPT/HCPCS: 76857

== ENCOUNTER 2025-03-14 13:10 | Outpatient (CLI) | payer BC, SELFPAY ==
--- OUTSIDE RECORDS SUMMARY | 2025-03-10 14:45 | XMS_ITS | Encounter Summary ---
Author Organization [place] [address] Care Team Providers Care Doormaker Name Role Phone Leah Mackay MD Primary Care Provider Reason for Visit * Reason Comments Annual Exam Follow-up On urology appt Hypertension Encounter Details Date Type Department Care Team (Late st Contact Info) Description 03/10/2025 2:45 PM EDT Office Visit [facility] [address] [place] [address] Leah Mackay MD [address] [place] [address] Annual physical exam (Primary Dx); Dysuria; OAB (overactive bladder); Urinary incontinence, unspecified type; Essential hypertension; Gastroesophageal reflux disease with esophagitis without hemorrhage; Obesity, morbid, BMI 50 or higher ([facility]); History of asthma Social History Tobacco Use Types Packs/Day Years [...] Answer Date Recorded PHQ-2 Total Score 0 03/10/2025 Exercise Vital Sign Answer Date Recorde d [...] place to sleep or slept in a jail (including now)? No 10/09/2023 Sex and Gender Information Value Date Recorded Sex Assigned at Not on file Legal Sex Male 7:56 AM EDT Gender Identity Not on file Sexual Orientation Not on file documented as of this encounter Last Filed Vital Signs Vital Sign Reading Time Taken Comments Blood Pressure 120/82 03/10/2025 3:05 PM EDT Pulse - - Temperature 36.8 C (98.3 F) 03/10/2025 3:05 PM EDT Respiratory Rate - - Oxygen Saturation - - Inhaled Oxygen Concentration - - Weight 185.5 kg (409 lb) 03/10/2025 3:05 PM EDT Height 180.3 cm (5' 11 ) 03/10/2025 3:05 PM EDT Body Mass Index 57.04 03/10/2025 3:05 PM EDT documented in this encounter Functional Status * Cognitive and Functional Status Question Answer Date of Assessment Author Is the person deaf or does h e/she have serious difficulty hearing? No 03/10/2025 3:04 PM EDT Emilie Blair MA Is the person blind or does he/she have serious difficulty seeing even when wearing glasses? No 03/10/2025 3:04 PM EDT Miguelina Blair i, MA Does this person have seriou s difficulty walking or climbing stairs? No 03/10/2025 3:04 PM EDT Emilie lBair MA Does this person have diffic ulty dressing or bathing? No 03/10/2025 3:04 PM EDT Emilie Blair MA * Is the person deaf or does he/she have serious difficulty hearing? Answer Date of Assessment Author No 03/10/2025 3:04 PM EDT Mehul Blair MA * Is the person blind or does he/she have serious difficulty seeing even when wearing glasses? Answer Date of Assessment Author No 03/10/2025 3:04 PM EDT Mehul Blair MA * Does this person have serious difficulty walking or climbing stairs? Answer Date of Assessment Author No 03/10/2025 3:04 PM EDT Mehul Blair MA * Does this person have difficulty dressing or bathing? Answer Date of Assessment Author No 03/10/2025 3:04 PM EDT Mehul Blair MA * Because of a physical, mental or emotional condition, does this person have difficulty doing errands alone such as visiting a doctor's office or shopping? Answer Date of Assessment Author No 03/10/2025 3:04 PM EDMehul Tang MA * PHQ-9 Total Score Answer Date of Assessment Author 0 03/10/2025 3:05 PM EDT Mehul Blair MA * Question Answer Date of Assessment Author Little interest or pleasure in doing things 0 03/10/2025 3:05 PM EDEmilie Tang MA Feeling down, depressed, or hopeless 0 03/10/2025 3:05 PM Emilie Ornelas MA PHQ-2 Total Score 0 03/10/2025 3:05 PM EDEmilie Tang MA * PHQ-2 Total Score Answer Date of Assessment Author 0 03/10/2025 3:05 PM EDT Mehul Blair MA * Question Answer Date of Assessment Author Feeling Nervous, Anxious, or on Edge 0 03/10/2025 3:05 PM EDT Emilie Blair MA Not Being Able to Stop or Co ntrol Worrying 0 03/10/2025 3:05 PM EDT Emilie Blair MA Worrying too Much About Diff erent Things 0 03/10/2025 3:05 PM EDT Emilie Blair MA Trouble Relaxing 0 03/10/2025 3:05 PM EDT N Emilie oh MA Being so Restless That it is Hard to Sit Still 0 03/10/2025 3:05 PM EDT Emilie Blair MA Becoming Easily Annoyed or Irritable 0 03/10/2025 3:05 PM EDT Emilie Blair MA Feeling Afraid as if Somethi ng Awful Might Happen 0 03/10/2025 3:05 PM COBYT Emilie Blair MA LES-7 Total Score 0 03/10/2025 3:05 PM EDT Emilie Blair MA documented as of this encounter Mental Status * Cognitive and Functional Status Question Answer Entry Date Author Because of a physical, menta l or emotional condition, does this person have difficulty doing errands alone such as visiting a doctor's office or shopping? No 03/10/2025 3:04 PM EDT Jonathan Blair MA Because of a physical, menta l or emotional condition, does this person have serious difficulty concentrating, remembering or making decisions? No 03/10/2025 3:04 PM EDT Emilie Blair MA * Because of a physical, mental or emotional condition, does this person have serious difficulty concentrating, remembering or making decisions? Answer Entry Date Author No 03/10/2025 3:04 PM EDT Mehul Blair MA documented in this encounter Ordered Prescriptions Prescription Sig Dispense Quantity Refills Last Filled Start Date End Date lisinopriL-hydrochl orothiazide (PRINZIDE;ZESTORETI C) 10-12.5 mg Oral TabletIndications:E ssential hypertension Take 1 Tablet by mouth daily. 30 Tablet 5 03/10/2025 famotidine (PEPCID) 40 mg Oral TabletIndications:G astroesophageal reflux disease with esophagitis without hemorrhage Take 1 Tablet by mouth every evening. 30 Tablet 03/10/2025 documented in this encounter Progress Notes * Leah Mackay MD - 03/10/2025 2:45 PM EDT Assessment & Plan 1. Urinary Incontinence. - Reports ongoing urinary incontinence and the need for restroom breaks at work. - Prescribed Flomax for a possible overactive prostate; has been on it for 3 days. - Advised to continue with Flomax as it may take time to show effects. - A note will be provided for his employer indicating the necessity for restroom breaks and the useof incontinence products. 2. Weight Management. - Lost 7 pounds of weight. - Does not think his weighing scale at home is working properly. - Weight recorded as 370 pounds at home, but 409 pounds in the clinic. - Encouraged for weight loss despite discrepancies in home scale. 3. Medication Management. - Refills for lispro and famotidine have been provided. - Medication sent to pharmacy. - Hepatitis B vaccine will be administered today. - Lab orders placed for upcoming tests. Dx/Orders: Diagnoses and all orders for this visit: Annual physical exam - COMPREHENSIVE METABOLIC PANEL; Future - HEMOGLOBIN A1C; Future - LIPID SCREEN; Future - TSH REFLEX TO FT4; Future Dysuria OAB (overactive bladder) Urinary incontinence, unspecified type Essential hypertension - lisinopriL-hydrochlorothiazide (PRINZIDE;ZESTORETIC) 10-12.5 mg Oral Tablet; Take 1 Tablet by mouth daily. Dispense: 30 Tablet; Refill: 5 - COMPREHENSIVE METABOLIC PANEL; Future - HEMOGLOBIN A1C; Future - LIPID SCREEN; Future - TSH REFLEX TO FT4; Future Gastroesophageal reflux disease with esophagitis without hemorrhage - famotidine (PEPCID) 40 mg Oral Tablet; Take 1 Tablet by mouth every evening. Dispense: 30 Tablet;Refill: 0 Obesity, morbid, BMI 50 or higher (HCC) (Chronic) History of asthma Other orders - HEPATITIS B VACCINE ADULT IM Will need an accomodation for works that he will need to be able to have restroom breaks as needed and have products for his incontinence issues at work. No follow-ups on file. Ranjan Hooper is a 29 y.o. male Chief Complaint Patient presents with Annual Exam Follow-up On urology appt Hypertension Well Adult: Subjective Mr. Hooper is a 29 y.o. male here for an annual wellness visit. Diet: well balanced Exercise: daily Activities of Daily Living: Functional Level: Self-care ADL Limitations: none Social Interaction Screen: Do you have concerns about issues that may impact social interaction such as developmental or behavioral/mental health conditions? no Health Maintenance Due Topic Date Due Annual Wellness Exam 10/17/2024 Health Maintenance Topic Date Due Annual Wellness Exam 10/17/2024 Influenza Vaccine (1) 04/18/2025 DTaP/TDaP/Td (2 - Td or Tdap) 06/02/2030 COVID-19 Vaccine Completed Hepatitis B Vaccine Completed Meningococcal B Vaccine Aged Out Pneumococcal Vaccine 0-49 Aged Out Immunization History Administered Date(s) Administered Flucelvax 05/05/2024 Hepatitis B (Recombinant), Adjuvanted 03/01/2023 Hepatitis B, Adult 06/19/2024, 03/10/2025 Influenza Vaccine Quadrivalent 05/19/2021 Influenza Vaccine Quadrivalent PF 11/10/2017, 01/02/2019, 05/18/2022 Influenza Vaccine, Unspecified Formulation 05/19/2021, 05/10/2023 Influenza, Injectable, MDCK, PF, Quadrivalent 06/02/2020 Moderna SARS-CoV-2 Vaccine 12+ Yrs (Light blue border) 11/26/2020, 12/24/2020 Pfizer SARS-CoV-2 Vaccine Gilberto-sucrose 12+ Yrs 07/08/2023, 05/05/2024 Tdap 06/02/2020 Patient Active Problem List Diagnosis Essential hypertension Incarcerated umbilical hernia History of asthma Past Medical History: Diagnosis Date Allergy Anemia runs in both sides of my family Anxiety Arthritis left ankle Asthma Depression GERD (gastroesophageal reflux disease) Heartburn Hypertension Kidney stone Thyroid disease thyroids swell and causes me pain but not all the time Ulcer UTI (urinary tract infection) Past Surgical History: Procedure Laterality Date ABDOMEN SURGERY 2018? CYSTOSCOPY 09/02/2024 in office procedure, Dr. Gomez DENTAL SURGERY HERNIA REPAIR August 2023 UMBILICAL HERNIA REPAIR N/A 08/29/2023 Open umbilical hernia repair; Surgeon: Catarino Trujillo MD; Location: [facility] MAIN OR; Service: General Allergies Allergen Reactions Ceclor [Cefaclor] Hives House Dust Cough Current Outpatient Medications on File Prior to Visit Medication Sig Dispense Refill cetirizine (ZYRTEC) 10 mg Oral Tablet Take 1 Tablet by mouth nightly. 30 Tablet 6 meloxicam (MOBIC) 7.5 mg Oral Tablet TAKE 1 TABLET BY MOUTH DAILY FOR PAIN 30 Tablet 5 mirabegron (MYRBETRIQ) 50 mg Oral Tablet Sustained Release 24 hr Take 1 Tablet by mouth daily. 90 Tablet 3 multivitamin with folic acid (THERAGRAN) 400 mcg Oral Tablet Take by mouth daily. nystatin (MYCOSTATIN) Top Cream Apply topically 2 times daily. 30 g 2 oxybutynin (DITROPAN-XL) 10 mg Oral Tablet Extended Rel 24 hr Take 10 mg by mouth daily. solifenacin (VESICARE) 5 mg Oral Tablet Take 1 Tablet by mouth daily. 90 Tablet 3 tamsulosin (FLOMAX) 0.4 mg Oral Capsule Take 0.4 mg by mouth daily. UNABLE TO FIND Med Name: fiber supplement daily No current facility-administered medications on file prior to visit. Social History Socioeconomic History Marital status: Single Spouse name: None Number of children: None Years of education: None Highest education level: None Tobacco Use Smoking status: Never Smokeless tobacco: Never Vaping Use Vaping status: Never Used Substance and Sexual Activity Alcohol use: No Drug use: Never Social Drivers of Health Financial Resource Strain: Medium Risk (10/09/2023) Overall Financial Resource Strain (CARDIA) Difficulty of Paying Living Expenses: Somewhat hard Food Insecurity: Food Insecurity Present (10/09/2023) Hunger Vital Sign Worried About Running Out of Food in the Last Year: Sometimes true Ran Out of Food in the Last Year: Never true Transportation Needs: Unmet Transportation Needs (10/09/2023) PRAPARE - Transportation Lack of Transportation (Medical): Yes Lack of Transportation (Non-Medical): Yes Physical Activity: Insufficiently Active (10/09/2023) Exercise Vital Sign Days of Exercise per Week: 1 day Minutes of Exercise per Session: 50 min Housing Stability: Low Risk (10/09/2023) Housing Stability Vital Sign Unable to Pay for Housing in the Last Year: No Number of Places Lived in the Last Year: 1 Unstable Housing in the Last Year: No Family History Problem Relation Age of Onset Asthma Mother High Blood Pressure Mother Heart Disease Mother Arthritis Mother severe arthritis Cancer Mother Hypertension Mother Urolithiasis Mother Diabetes Mother High Cholesterol Mother Learning Disabilities Mother Asthma Father Arrhythmia Father Heart Disease Father High Blood Pressure Father Arthritis Father severe arthritis Cancer Father Hypertension Father Urolithiasis Father Diabetes Father High Cholesterol Father Learning Disabilities Father Asthma Sister Arthritis Sister severe arthritis Learning Disabilities Sister Heart Disease Maternal Grandmother High Blood Pressure Maternal Grandmother Cancer Maternal Grandmother Problems Maternal Grandmother Hypertension Maternal Grandmother Kidney Disease Maternal Grandmother Urolithiasis Maternal Grandmother Diabetes Maternal Grandmother Hearing Loss Maternal Grandmother High Cholesterol Maternal Grandfather High Blood Pressure Maternal Grandfather Heart Disease Maternal Grandfather Pacemaker Maternal Grandfather Heart Disease Paternal Grandmother Cancer Paternal Grandmother High Blood Pressure Paternal Grandmother Problems Paternal Grandmother Hypertension Paternal Grandmother Kidney Disease Paternal Grandmother Urolithiasis Paternal Grandmother No Known Problems Paternal Grandfather Anesth Problems Neg Hx No results found. No results found for this visit on 03/10/25. Patient Care Team: Leah Mackay MD as PCP - General (Family Medicine) Lab Results Component Value Date WBC 10.5 (H) 06/22/2024 HGB 12.9 (L) 06/22/2024 HCT 43.2 06/22/2024 PLT 347 06/22/2024 CHOLESTEROL 147 06/22/2024 TRIG 94 06/22/2024 HDL 35 (L) 06/22/2024 LDLCALC 94 06/22/2024 ALT 37 06/22/2024 AST 31 06/22/2024 NA 135 (L) 06/22/2024 K 3.7 06/22/2024 CL 97 (L) 06/22/2024 CREATININE 0.86 06/22/2024 BUN 10 06/22/2024 CO2 24 06/22/2024 TSH 1.800 02/17/2021 GLU 127 (H) 06/22/2024 HGBA1C 6.2 (H) 06/22/2024 TSHREFLEX 2.020 06/22/2024 Additional issues addressed today: Hypertension: Home reporting of hypertension was reviewed at time of visit. Angelia denies any episodes of dizziness, lightheadedness, presyncope, syncope, headache, or chest pain. Angelia does not report any new symptoms of possible hypertension sequelae. The patient reports that he is not having significant issues or side effects of current medications/treatments. History of Present Illness The patient presents for urinary incontinence, weight management, and medication management. He is seeking a note from his family physician to present to at his workplace, requesting accommodations for restroom breaks as needed. He has been using incontinence products and was prescribed Flomax by Dr. Gomez, which he started taking on 03/07/2025. However, he reports no improvement in his symptoms. His urologist suspects that an overactive prostate may be contributing to his condition.He discontinued visits to the urologist due to the distance. He is scheduled to receive his hepatitis B vaccine today. He has lost 7 pounds of weight. He does not think his weighing scale at home is working properly. He is also requesting refills for his lispro and famotidine medications. Review of Systems Constitutional: Negative. HENT: Negative. Respiratory: Negative. Cardiovascular: Negative. Gastrointestinal: Negative. Genitourinary: Positive for dysuria and frequency. Musculoskeletal: Negative. Objective Blood pressure 120/82, temperature 98.3 ??F (36.8 ??C), height 5' 11 (1.803 m), weight (!) 409 lb (185.5 kg). Body mass index is 57.04 kg/m??. Physical Exam Respiratory: Clear to auscultation, no wheezing, rales or rhonchi Cardiovascular: Regular rate and rhythm, no murmurs, rubs, or gallops Physical Exam Vitals and nursing note reviewed. Constitutional: Appearance: He is obese. HENT: Head: Normocephalic. Cardiovascular: Rate and Rhythm: Normal rate. Heart sounds: No murmur heard. Pulmonary: Effort: Pulmonary effort is normal. Breath sounds: No wheezing. Abdominal: Palpations: Abdomen is soft. Tenderness: There is no abdominal tenderness. Neurological: Mental Status: He is alert. Results The provider educated the patient (or legal off premise service representative) on the use of the ambient listening artificial intelligence tool, Savaree. They were informed that this AI tool processes the conversation to generate a clinical note with the expected benefit of improved accuracy while achieving an improved encounter experience for the patient and provider.?The provider explained that the medical information captured by the AI tool including, but not limited to, diagnoses and treatment plan would be protected in accordance with applicable privacy laws and that all diagnoses and treatment decisions would be made by the provider. The provider explained that the note generated will be reviewed bythe provider for accuracy to minimize potential errors.? The patient was given an opportunity to ask questions and opt out of proceeding with the use of the AI tool. After being informed of such information, the patient (or legal off premise service representative), and each individual in attendance with the patient, verbally consented to the use of the AI tool. documented in this encounter Plan of Treatment Scheduled Orders Name Type Priority Associated Diagnoses Orde r Schedule COMPREHENSIVE METABOLIC PANEL Lab Routine Essential hypertension Annual physical exam 1 Occurrences starting 03/10/2025 until 03/10/2026 HEMOGLOBIN A1C Lab Routine Essential hypertension Annual physical exam 1 Occurrences starting 03/10/2025 until 03/10/2026 LIPID SCREEN Lab Routine Essential hypertension Annual physical exam 1 Occurrences starting 03/10/2025 until 03/10/2026 TSH REFLEX TO FT4 Lab Routine Essential hypertension Annual physical exam 1 Occurrences starting 03/10/2025 until 03/10/2026 documented as of this encounter Goals Goal Patient Goal Type Associated Problems Recent Progress Patient-Stated? Author Blood Pressure < 140/90 Blood Pressure 120/82( 025 3:05 PM EDT) No Natty, Chevy, DO Eat better, exercise, reach an ideal body weight General No Paris Stewart RMA documented as of this encounter Visit Diagnoses Diagnosis Annual physical exam- Primary Routine general medical examination at a health care facility Dysuria OAB (overactive bladder) Hypertonicity of bladder Urinary incontinence, unspecified type Essential hypertension Unspecified essential hypertension Gastroesophageal reflux disease with esophagitis without hemorrhage Obesity, morbid, BMI 50 or higher ([facility]) History of asthma Personal history of other diseases of respiratory system documented in this encounter Discontinued Medications Medication Sig Discontinue Reason Start Date End Da te lisinopriL-hydrochlorothi azide (PRINZIDE;ZESTORETIC) 10-12.5 mg Oral TabletIndications:Essenti al hypertension Take 1 Tablet by mouth daily. Reorder 11/24/2023 03/10/2025 famotidine (PEPCID) 40 mg Oral TabletIndications:Gastroe sophageal reflux disease with esophagitis without hemorrhage TAKE 1 TABLET BY MOUTH ONCE DAILY IN THE EVENING Reorder 01/25/2025 03/10/2025 documented as of this encounter Historical Medications * This list may reflect changes made after this encounter. tamsulosin (FLOMAX) 0.4 mg Oral Capsule Take 0.4 mg by mouth daily. 03/07/2025 oxybutynin (DITROPAN-XL) 10 mg Oral Tablet Extended Rel 24 hr Take 10 mg by mouth daily. 03/07/2025 added in this encounter Orders Immunization/Injection Count Last Ordered Date First Ordered Date HEPATITIS B VACCINE ADULT IM 1 03/10/2025 documented in this encounter Care Teams Doormaker Relationship Specialty Start Date End Date Leah Mackay MD [address] [place] [address] PCP - General Family Medicine 01/05/16 documented as of this encounter
--- NOTE | 2025-03-14 13:00 | US_ITS ---
FINAL REPORT TECHNIQUE: Ultrasound images of the kidneys and spleen were obtained. CLINICAL HISTORY: Cystitis. FINDINGS: The right kidney measures 10.4 cm. There is no hydronephrosis, mass or stone. Left kidney measures 11.5 cm. There is no hydronephrosis, mass or stone. There is normal cortical echogenicity and thickness bilaterally. The spleen is unremarkable. IMPRESSION: Unremarkable ultrasound of the kidneys. Reviewed, Interpreted and Dictated by Jonna Michael MD Transcribed by ROSANNE Perdue Authenticated and [facility]
--- OUTSIDE RECORDS SUMMARY | 2025-03-14 13:13 | XMS_ITS | Clinical Summary ---
Author Organization [facility] are Address [address] [place] [phone] Phone Care Team Providers Care Rip Saw Operator Name Role Phone Katelynn Green APRN Primary Care Physician [ ] Conditions or Problems No information available. Medications No information available. Medications Administered No information available. Allergies, Adverse Reactions, Alerts No information available. Results No information available. Plan of Care No information available. Procedures No information available. Vital Signs No information available. Immunizations No information available. Advance Directives No information available.
--- OUTSIDE RECORDS SUMMARY | 2025-03-14 13:14 | XMS_ITS | Encounter Summary ---
Author Organization [place] [address] Care Team Providers Care Director Employee Communications Name Role Phone Leah Mackay MD Primary Care Provider [phone] Reason for Visit * Reason Onset Date Comments Medication Refill Central Patient Navigator Outreach 01/23/2025 med refill - 30 Encounter Details Date Type Department Care Team (Late st Contact Info) Description 01/23/2025 Refill [facility] [address] [place] [address] Niko Higginbotham MD [address] [place] [address] Medication Refill; Central Patient Navigator Outreach (med refill - 30) Social History Tobacco Use Types Packs/Day Years Used Date Smoking Tobacco: Never Smokeless Tobacco: Never Alcohol Use Standard Drinks/Week Comments No 0 (1 standard drink = 0.6 oz pur e alcohol) Overall Financial Resource Strain ([facility]) Answe r Date Recorded How hard is [...] place to sleep or slept in a mcc (including now)? No 10/09/2023 Sex and Gender [...] Care Attempt Count: 1st Care Gaps Addressed electronics assembler: Annual Wellness Visit Outcome: [employer] Network[employer] Message Sent and No answer/busy. Full Call back number: [phone] * Telephone Encounter - Lola Roger CPhT [...] documented as of this encounter Care Teams Director Employee Communications Relationship Specialty Start Date End Date Leah Mackay MD [address] [place] [address] PCP - General Family Medicine 01/05/16 documented as of this encounter
--- OUTSIDE RECORDS SUMMARY | 2025-03-14 13:14 | XMS_ITS | Encounter Summary ---
Author Organization [place] [address] Care Team Providers Care Credit And Collection Manager Name Role Phone Leah Mackay MD Primary Care Provider [phone] Reason for Visit * Reason Onset Date Comments Refill 03/07/2025 x2 Encounter Details Date Type Department Care Team (Late st Contact Info) Description 03/07/2025 Telephone [facility] [address] [place] [address] Leah Mackay MD [address] [place], [place] [id number] Refill (x2) Social History Tobacco Use Types Packs/Day Years [...] Julianna Stanley RMA documented in this encounter Miscellaneous Notes * Telephone Encounter - Karen Chandra MA - 03/07/2025 4:23 PM EDT Spoke w/pt advised appt is needed before medication can be refilled * Telephone Encounter - Arely Murphy - 03/07/2025 3:37 PM EDT Select the most appropriate reason for this telephone message: Medication Refill Who is requesting the refill: Patient Medication(s)Name/Dosage/Frequency: Disp Refills Start End famotidine (PEPCID) 40 mg Oral Tablet 30 Tablet 0 01/25/2025 -- Sig - Route: TAKE 1 TABLET BY MOUTH ONCE DAILY IN THE EVENING - Oral Sent to pharmacy as: famotidine 40 mg tablet (PEPCID) Cosign for Ordering: Accepted by Niko Higginbotham MD on 01/25/2025 11:55 AM E-Prescribing Status: Receipt confirmed by pharmacy (01/25/2025 6:57 AM EDT) famotidine (PEPCID) 40 mg Oral Tablet [[id number]] Disp Refills Start End lisinopriL-hydrochlorothiazide (PRINZIDE;ZESTORETIC) 10-12.5 mg Oral Tablet 30 Tablet 5 11/24/2023 -- Sig - Route: Take 1 Tablet by mouth daily. - Oral Sent to pharmacy as: lisinopril 10 mg-hydrochlorothiazide 12.5 mg tablet (PRINZIDE;ZESTORETIC) Cosign for Ordering: Accepted by Leah Mackay MD on 11/24/2023 4:11 PM E-Prescribing Status: Receipt confirmed by pharmacy (11/24/2023 10:55 AM EDT) lisinopriL-hydrochlorothiazide (PRINZIDE;ZESTORETIC) 10-12.5 mg Oral Tablet [[id number]] Did patient contact the pharmacy first: No How many days left on hand: 0 Future appt date w/ prescribing provider: 03/11 [facility] Method of Communication: Phone Call Additional Information: N/A documented in this encounter Plan of Treatment Not on file documented as of this encounter Goals Goal Patient Goal Type Associated Problems Recent Progress Patient-Stated? Author Blood Pressure < 140/90 Blood Pressure 120/82( 025 3:05 PM EDT) No Natty, Chevy, DO Eat better, exercise, reach an ideal body weight General No Paris Stewart, RMMichael documented as of this encounter Visit Diagnoses Diagnosis Gastroesophageal reflux disease with esophagitis without hemorrhage Essential hypertension Unspecified essential hypertension documented in this encounter Care Teams Credit And Collection Manager Relationship Specialty Start Date End Date Leah Mackay MD [address] [place] [address] PCP - General Family Medicine 01/05/16 documented as of this encounter
--- OUTSIDE RECORDS SUMMARY | 2025-03-14 13:14 | XMS_ITS | Clinical Summary ---
Author Organization [facility] Address [address] [place] [address] Phone Care Team Providers Care Ocular Care Technician Name Role Phone Leah Mackay MD Primary Care Provider [phone] Allergies Active Allergy Reactions Criticality Noted Date Comments Cefaclor Hives 06/05/2010 House Dust Cough 09/11/2023 Medications meloxicam (MOBIC) 7.5 mg Oral TabletIndications :Generalized joint pain TAKE 1 TABLET BY MOUTH DAILY FOR PAIN 30 Tablet 5 2 Active nystatin (MYCOSTATIN) Top Cream Apply topically 2 times daily. 30 g 2 3 Active UNABLE TO FIND Med Name: fiber supplement daily Active multivitamin with folic acid (THERAGRAN) 400 mcg Oral Tablet Take by mouth daily. Active cetirizine (ZYRTEC) 10 mg Oral TabletIndications :Seasonal allergic rhinitis, unspecified trigger Take 1 Tablet by mouth nightly. 30 Tablet 6 4 Active mirabegron (MYRBETRIQ) 50 mg Oral Tablet Sustained Release 24 hr Take 1 Tablet by mouth daily. 90 Tablet 3 5 Active solifenacin (VESICARE) 5 mg Oral Tablet Take 1 Tablet by mouth daily. 90 Tablet 3 5 Active oxybutynin (DITROPAN-XL) 10 mg Oral Tablet Extended Rel 24 hr Take 10 mg by mouth daily. 5 Active tamsulosin (FLOMAX) 0.4 mg Oral Capsule Take 0.4 mg by mouth daily. 5 Active famotidine (PEPCID) 40 mg Oral TabletIndications :Gastroesophageal reflux disease with esophagitis without hemorrhage Take 1 Tablet by mouth every evening. 30 Tablet 5 Active lisinopriL-hydroc hlorothiazide (PRINZIDE;ZESTORE TIC) 10-12.5 mg Oral TabletIndications :Essential hypertension Take 1 Tablet by mouth daily. 30 Tablet 5 5 Active Active Problems Patient Care Coordination No te [...] Encounters Date Type Department Care Team Description 03/10/2025 2:45 PM EDT Office Visit [facility] [address] [place] [address] Leah Mackay MD Annual physical exam (Primary Dx); Dysuria; OAB (overactive bladder); Urinary incontinence, unspecified type; Essential hypertension; Gastroesophageal reflux disease with esophagitis without hemorrhage; Obesity, morbid, BMI 50 or higher (HCC); History of asthma 03/07/2025 Telephone [facility] [address] [place] [address] Leah Mackay MD Refill (x2) 01/23/2025 Refill [facility] [address] [place] [address] Niko Higginbotham MD Medication Refill; Central Patient Navigator Outreach (med refill - 30) from Last 3 Months Immunizations Immunization Administration Dates Next Due Flucelvax 05/05/2024 Hepatitis B (Recombinant), Adjuvanted 03/01/2023 Hepatitis B, Adult 03/10/2025,06/19/2024 Influenza Vaccine Quadrivalent 05/19/2021 Influenza Vaccine Quadrivalent PF 05/18/2022,,11/10/2017 Influenza Vaccine, Unspecified Formulation 05/10,05/19/2021 Influenza, Injectable, MDCK, PF, Quadrivalent 06/02/2020 Moderna SARS-CoV-2 Vaccine 1 2+ Yrs (Light blue border) 12/24/2020,11/26/2020 Tdap 06/02/2020 Surgical History Surgery Date Site/Laterality Comments ABDOMEN SURGERY 2018? DENTAL SURGERY UMBILICAL HERNIA REPAIR 08/29/2023 N/A Open umbilical hernia repair; Surgeon: Catarino Trujillo MD; Location: [facility] MAIN OR; Service: General CYSTOSCOPY 09/02/2024 in office procedure, Dr. Gomez HERNIA REPAIR August 2023 Medical History Medical History Date Comments Hypertension Asthma Heartburn Arthritis left ankle Ulcer UTI (urinary tract infection) GERD (gastroesophageal reflux disease) Depression Anemia runs in both pam es of my family Thyroid disease thyroids swell a nd causes me pain but not all the time Kidney stone Anxiety Allergy Family History Medical History Relation Name Comments Arrhythmia Father Angelia Hooper Arthritis Father Angelia Hooper severe arthrit is Asthma Father Angelia Hooper Cancer Father Angelia Hooper Diabetes Father Angelia Hooper Heart Disease Father Angelia Hooper High Blood Pressure Father Angelia Hooper High Cholesterol Father Angelia Hooper Hypertension Father Angelia Hooper Learning Disabilities Father Angelia Hooper Urolithiasis Father Angelia Hooper Heart Disease Maternal Grandfather High Blood Pressure Maternal Grandfather High Cholesterol Maternal Grandfather Pacemaker Maternal Grandfather Cancer Maternal Grandmother Margarita Evea Issacs Diabetes Maternal Grandmother Margarita Evea Issacs Problems Maternal Grandmother Margarita Evea Issacs Hearing Loss Maternal Grandmother Margarita Evea Issacs Heart Disease Maternal Grandmother Margarita Evea Issacs High Blood Pressure Maternal Grandmother Margarita Evea David cs Hypertension Maternal Grandmother Margarita Evea Issacs Kidney Disease Maternal Grandmother Margarita Evea Issacs Urolithiasis Maternal Grandmother Margarita Evea Issacs Arthritis Mother Yvette Hooper severe arthriti s Asthma Mother Yvette Hooper Cancer Mother Yvette Hooper Diabetes Mother Yvette Hooper Heart Disease Mother Yvette Hooper High Blood Pressure Mother Yvette Hooper High Cholesterol Mother Yvette Hooper Hypertension Mother Yvette Hooper Learning Disabilities Mother Yvette Hooper Urolithiasis Mother Yvette Hooper No Known Problems Paternal Grandfather Cancer Paternal Grandmother sofía dishar Problems Paternal Grandmother sofaí dishar Heart Disease Paternal Grandmother sofía dishar High Blood Pressure Paternal Grandmother sofía dishar Hypertension Paternal Grandmother sofía dishar Kidney Disease Paternal Grandmother sofía dishar Urolithiasis Paternal Grandmother sofía dishar Arthritis Sister Vannesa Lofton severe arthriti s Asthma Sister Vannesa Lofton Learning Disabilities Sister Vannesa Lofton Anesth Problems Neg Hx Relation Name Status Comments Father Angelia Hooper Alive Maternal Grandfather Maternal Grandmother Margarita Alex Issacs Mother Yvette Hooper Alive Paternal Grandfather Paternal Grandmother sofía dishar Sister Vannesa Lofton Alive Social History Tobacco Use Types Packs/Day [...] place to sleep or slept in a senior care (including now)? No 10/09/2023 Sex and Gender Information Value Date Recorded Sex Assigned at Not on file Legal Sex Male 7:56 AM EDT Gender Identity Not on file Sexual Orientation Not on file Obstetrics History Last Filed Vital Signs Vital Sign Reading Time Taken Comments Blood Pressure 120/82 03/10/2025 3:05 PM EDT Pulse 108 09/09/2024 9:35 AM EST Temperature 36.8 C (98.3 F) 03/10/2025 3:05 PM EDT Respiratory Rate 16 09/01/2024 10:11 AM EST Oxygen Saturation 96% 09/09/2024 9:35 AM EST Inhaled Oxygen Concentration - - Weight 185.5 kg (409 lb) 03/10/2025 3:05 PM EDT Height 180.3 cm (5' 11 ) 03/10/2025 3:05 PM EDT Body Mass Index 57.04 03/10/2025 3:05 PM EDT Plan of Treatment Health Maintenance Due Date Last Done Comments Annual Wellness Exam 10/17/2024 03/10/2025, 01/05/20 16 Influenza Vaccine (#1) 2025 , 05/10/2023, 05/18/2022, Additional history exists DTaP/TDaP/Td (2 - Td or Tdap) 06/02/2030 06/02/2020 COVID-19 Vaccine Completed 05/05/2024, , 12/24/2020, Additional history exists Hepatitis B Vaccine Completed 03/10/2025, 06/19/2024, 03/01/2023 Meningococcal B Vaccine Aged Out No l [...] No Paris Stewart, RMA Insurance [employer] PPO Care Teams Ocular Care Technician Relationship Specialty Start Date End Date Leah Mackay MD [address] [place] [address] PCP - General Family Medicine 01/05/16
== END 2025-03-14 23:59 | disposition home or self-care (01) ==
LOC: RAD 13:10
PROVIDERS: PCP Family Medicine; Visit Provider Urology
DX: N30.90 Cystitis, unspecified without hematuria (principal)
CPT/HCPCS: 76770

== ENCOUNTER 2025-04-03 22:26 | Emergency (ER) | payer BC, SELFPAY ==
--- OUTSIDE RECORDS SUMMARY | 2025-03-10 14:45 | XMS_ITS | Encounter Summary ---
Author Organization [place] [address] Care Team Providers Care Compensation And Hris Analyst Name Role Phone Leah Mackay MD Primary Care Provider [phone] Reason for Visit * Reason Comments Annual Exam Follow-up On urology appt Hypertension Encounter Details Date Type Department Care Team (Late st Contact Info) Description 03/10/2025 2:45 PM EDT Office Visit [facility] [address] [place] [address] Leha Mackay MD [address] [place] [address] Annual physical exam (Primary Dx); Dysuria; OAB (overactive bladder); Urinary incontinence, unspecified type; Essential hypertension; Gastroesophageal reflux disease with esophagitis without hemorrhage; Obesity, morbid, BMI 50 or higher ([facility]); History of asthma Social History Tobacco [...] place to sleep or slept in a group home (including now)? No 10/09/2023 Sex and Gender [...] stairs? No 03/10/2025 3:04 PM EDT Emilie Blair MA Does this person have diffic ulty [...] hernia repair; Surgeon: Catarino Trujillo MD; Location: [facility] MAIN OR; Service: General Allergies Allergen Reactions [...] The provider educated the patient (or legal electronics parts sales representative) on the use of the ambient listening artificial intelligence tool, DotBlu. They were informed that this AI tool [...] of such information, the patient (or legal electronics parts sales representative), and each individual in attendance with the patient, verbally consented to the use of the AI tool. documented in this encounter Plan of Treatment Upcoming Encounters Date Type Department Care Team (Late st Contact Info) Description 06/06/2025 11:00 AM EDT Office Visit [facility] Sleep Medicine [address] [address] Reinaldo Davis MD [address] [place] [phone] documented as of this encounter Goals Goal Patient Goal Type Associated Problems Recent Progress Patient-Stated? Author Blood Pressure < 140/90 Blood Pressure 148/88( 025 8:08 AM EDT) No Natty, Chevy, DO Eat better, exercise, reach an ideal body weight General No Paris Stewart, RMA documented as of this encounter Results * TSH REFLEX TO FT4 (03/22/2025 8:56 AM EDT) TSH Reflex 1.800 0.270 - 4.200 mcIU/mL 03/22/2025 5:33 PM EDT [facility] Blood VENOUS BLOOD / Unknown Venipuncture / Unknown 03/22/2025 8:56 AM EDT 03/22/2025 8:56 AM EDT Narrative [facility] - 03/22/2025 5:33 PM EDT Ingestion of araceli doses of biotin (>5 mg/day) taken within 8 hours of drawing blood sample can interfere with this immunoassay test. us Leah Mackay MD CHEMISTRY ORDERABLES Final Res ult [facility] [address] [facility] , [place] [address] * (ABNORMAL) LIPID SCREEN (03/22/2025 8:56 AM EDT) Cholesterol 141 <200 mg/dL 03/22/2025 5:33 PM EDT [facility] Comment: < 200 Desirable 200 - 239 Borderline High >= 240 High Triglyceride 67 <150 mg/dL 03/22/2025 5:33 PM EDT [facility] Comment: < 150 Normal 150 - 199 Borderline High 200 - 499 High >= 500 Very High HDL 34(L) >=40 mg/dL 03/22/2025 5:33 PM EDT [facility] Comment: > 60 Optimal 40 - 60 Acceptable < 40 Low LDL Calculated 93 <100 mg/dL 03/22/2025 5:33 PM EDT [facility] Comment: < 100 Optimal 100 - 129 Near or above optimal 130 - 159 Borderline High 160 - 189 High >= 190 Very High The National Institutes of Health (NIH) equation is used for all lipid panels that report calculated LDL (LDL-C). Non-HDL-C Calculated 107 <=129 mg/dL 03/22/2025 5:33 PM EDT [facility] Comment: <130 Desirable 130-159 Above Desirable 160-189 Borderline High 190-219 High >= 220 Very High Fasting Specimen? Unknown None 025 5:33 PM EDT [facility] Blood VENOUS BLOOD / Unknown Venipuncture / Unknown 03/22/2025 8:56 AM EDT 03/22/2025 8:56 AM EDT us Leah Mackay MD CHEMISTRY ORDERABLES Final Res ult [facility] [address] [place] [address] * (ABNORMAL) HEMOGLOBIN A1C (03/22/2025 8:56 AM EDT) Hgb A1C 6.1(H) 4.2 - 5.6 % 03/22/2025 4:31 PM EDT [facility] Est. Avg Glucose 128 mg/dL 03/22/2025 4:31 PM EDT [facility] Blood VENOUS BLOOD / Unknown Venipuncture / Unknown 03/22/2025 8:56 AM EDT 03/22/2025 8:56 AM EDT Narrative [facility] - 03/22/2025 4:31 PM EDT REFERENCE RANGE: Normal: 4.0-5.6% Pre-diabetes: 5.7-6.4% Provisional diagnosis of diabetes: >6.4% Hgb F>10% and anything which shortens red cell survival, such as hemolytic anemia, or unstable hemoglobin variants such as HbSS, HbSC, or HbCC, will lower the HbA1c value associated with a given level of glycemic control. us Leah Mackay MD CHEMISTRY ORDERABLES Final Res ult [facility], [facility] [address] [facility] , [place] [address] * (ABNORMAL) COMPREHENSIVE METABOLIC PANEL (03/22/2025 8:56 AM EDT) Sodium 136 136 - 145 mmol/L 03/22/2025 5:33 PM EDT [facility] Potassium 4.3 3.5 - 5.0 mmol/L 03/22/2025 5:33 PM EDT [facility] Chloride 99 98 - 107 mmol/L 03/22/2025 5:33 PM EDT [facility] Total CO2 25 22 - 29 mmol/L 03/22/2025 5:33 PM EDT [facility] Anion Gap 12 7 - 16 mmol/L 03/22/2025 5:33 PM EDT [facility] Calcium 8.6 8.6 - 10.4 mg/dL 03/22/2025 5:33 PM EDT [facility] Glucose Lvl 138(H) 70 - 99 mg/dL 03/22/2025 5:33 PM EDT [facility] BUN 14 6 - 20 mg/dL 03/22/2025 5:33 PM EDT [facility] Creatinine 0.66(L) 0.67 - 1.30 mg/dL 03/22/2025 5:33 PM EDT [facility], [facility] Albumin 3.8 3.5 - 5.2 gm/dL 03/22/2025 5:33 PM EDT [facility], [facility] Total Protein 7.5 6.4 - 8.3 gm/dL 03/22/2025 5:33 PM EDT [facility], [facility] Bili Total 0.2 0.2 - 1.4 mg/dL 03/22/2025 5:33 PM EDT [facility], [facility] ALT 30 <=41 U/L 03/22/2025 5:33 PM EDT [facility], [facility] AST 19 <=40 U/L 03/22/2025 5:33 PM EDT [facility], [facility] Alk Phos 115 40 - 129 U/L 03/22/2025 5:33 PM EDT [facility], [facility] eGFR (CKD-EPIcr 2020) 129 >=60 mL/min/1.7 3 m2 03/22/2025 5:33 PM EDT [facility], [facility] Comment:Estimated GFR was ca lculated using the CKD-EPIcr (2020) equation refit without race. The equation is recommended by the National Kidney Foundation - [place] [employer] of Nephrology Task Force. Blood VENOUS BLOOD / Unknown Venipuncture / Unknown 03/22/2025 8:56 AM EDT 03/22/2025 8:56 AM EDT us Leah Mackay MD CHEMISTRY ORDERABLES Final Res ult [facility], [facility] [address] [facility] , [address] [place] [id number] documented in this encounter Visit Diagnoses Diagnosis Annual physical exam- Primary Routine general medical examination at a health care facility Dysuria OAB (overactive bladder) Hypertonicity of bladder Urinary incontinence, unspecified type Essential hypertension Unspecified essential hypertension Gastroesophageal reflux disease with esophagitis without hemorrhage Obesity, morbid, BMI 50 or higher (HCC) History of asthma Personal history of other [...] Take 10 mg by mouth daily. 03/07/2025 03/22/2025 added in this encounter Orders Immunization/Injection Count Last Ordered Date First Ordered Date HEPATITIS B VACCINE ADULT IM 1 03/10/2025 documented in this encounter Care Teams Compensation And Hris Analyst Relationship Specialty Start Date End Date Leah Mackay MD [address] [place] [address] PCP - General Family Medicine 01/05/16 documented as of this encounter
--- OUTSIDE RECORDS SUMMARY | 2025-03-22 08:00 | XMS_ITS | Encounter Summary ---
Author Organization [place] [address] Care Team Providers Care Title Abstractor Name Role Phone Leah Mackay MD Primary Care Provider [phone] Reason for Referral * Consultation (Routine) - Pending Review Specialty Diagnoses / Procedures Referred By Kim hopkins Referred To Contact Sleep Center Diagnoses Excessive daytime sleepiness Procedures [place] OFFICE/OUTPATIENT NEW MODERATE MDM 45 MINUTES Leah Mackay MD [address] [place] [address] Phone: tel: fax: [facility] [address] [address] Phone: tel: fax: Referral ID Status Reason Start Date Expiration Date V isits Requested Visits Authorized [id number] Pending Review 03/22/2025 03/22/2026 99 99 Question Answer What test needs to be performed? Appropriate testing as determined by sleep specialist/sleep medicine protocols Reason for Visit * Reason Comments Loss of Consciousness Encounter Details Date Type Department Care Team (Late st Contact Info) Description 03/22/2025 8:00 AM EDT Office Visit [facility] [address] [place] [address] Leah Mackay MD [address] [place] [address] Annual physical exam (Primary Dx); Excessive daytime sleepiness; Essential hypertension; Chronic allergic rhinitis; OAB (overactive bladder) Social History Tobacco Use Types Packs/Day Years [...] Sign Reading Time Taken Comments Blood Pressure 148/88 03/22/2025 8:08 AM EDT Pulse - - Temperature 36.8 C (98.2 F) 03/22/2025 8:08 AM EDT Respiratory Rate - - Oxygen Saturation - - Inhaled Oxygen Concentration - - Weight 186.7 kg (411 lb 9.6 oz) 03/22/2025 8:08 AM EDT Height 180.3 cm (5' 11 ) 03/22/2025 8:08 AM EDT Body Mass Index 57.41 03/22/2025 8:08 AM EDT documented in this encounter Functional Status * Is the [...] 3:04 PM EDT Mehul Blair MA documented as of this encounter Mental Status * Because of a physical, mental or emotional condition, does this person have serious difficulty concentrating, remembering or making decisions? Answer Entry Date Author No 03/10/2025 3:04 PM Mehul Ornelas MA documented in this encounter Ordered Prescriptions Prescription Sig Dispense Quantity Refills Last Filled Start Date End Date tolterodine (DETROL LA) 4 mg Oral Capsule, Sust. Release 24 hrIndications:OAB (overactive bladder) Take 1 Capsule by mouth daily. For bladder 90 Capsule 3 03/22/2025 fexofenadine (HARMAN ALLERGY) 180 mg Oral TabletIndications: Chronic allergic rhinitis Take 1 Tablet by mouth daily. 90 Tablet 3 03/22/2025 documented in this encounter Progress Notes * Leah Mackay MD - 03/22/2025 8:00 AM EDT Assessment & Plan 1. Excessive daytime sleepiness. - He is currently on Ditropan for his bladder condition, which may be contributing to his increasedsleepiness. - The possibility of sleep apnea was discussed, given his symptoms and physical examination findings. - A sleep study will be ordered to confirm the diagnosis of sleep apnea. - His medication will be adjusted accordingly. He is advised to return to work on 03/24/2025 with the current accommodations in place. 2. Hypertension. - His blood pressure was elevated during this visit. - He is advised to ensure proper technique when using his home blood pressure monitor and to bring it in for calibration if needed. - He has been taking his blood pressure medication at night, which should be continued. - No changes to his current blood pressure medication regimen are planned at this time. 3. Bladder issues. - He is currently taking Ditropan (oxybutynin) for his bladder condition but has not noticed significant improvement. - The side effects of Ditropan, including fatigue, confusion, and vision issues, were discussed. - He will be switched to Detrol, which has fewer side effects. - The prescription for Detrol will be sent to the pharmacy. 4. Allergies. - He is currently taking Zyrtec (cetirizine) for allergies. - Due to its potential to cause drowsiness, he will be switched to a non-drowsy alternative. - The prescription for the non-drowsy allergy medication will be sent to the pharmacy. - He is advised to take the new allergy medication as directed. 5. - He expressed concern about his blood sugar levels. - Previous tests indicated borderline levels. - Blood work will be conducted today to assess his blood sugar levels. - Results will be reviewed and discussed at the next visit. Dx/Orders: Diagnoses and all orders for this visit: Annual physical exam - COMPREHENSIVE METABOLIC PANEL - HEMOGLOBIN A1C - LIPID SCREEN - TSH REFLEX TO FT4 Excessive daytime sleepiness - AMB REFERRAL TO SLEEP STUDIES/MEDICINE Essential hypertension - COMPREHENSIVE METABOLIC PANEL - HEMOGLOBIN A1C - LIPID SCREEN - TSH REFLEX TO FT4 Chronic allergic rhinitis - fexofenadine (HARMAN ALLERGY) 180 mg Oral Tablet; Take 1 Tablet by mouth daily. Dispense: 90 Tablet; Refill: 3 OAB (overactive bladder) - tolterodine (DETROL LA) 4 mg Oral Capsule, Sust. Release 24 hr; Take 1 Capsule by mouth daily. For bladder Dispense: 90 Capsule; Refill: 3 He is currently on a leave from work due to excessive daytime sleepiness. He is on ditropan which is new for his bladder and I certainly believe that probably has explained his worsening. He will be changed on this med and a sleep study will be ordered. He will be able to return to work on the with the current accommodations he already has. No follow-ups on file. Ranjan Hooper is a 29 y.o. male Chief Complaint Patient presents with Loss of Consciousness Loss of Consciousness This is a recurrent problem. The current episode started 1 to 4 weeks ago. The problem occurs constantly. The problem has been unchanged. History of Present Illness The patient presents for excessive daytime sleepiness, hypertension, and bladder issues. He has been experiencing blackouts for the past 6 months, which have started to interfere with his work. These episodes are often preceded by a twitch in his right eye. He reports zoning out while performing tasks such as paperwork, but does not experience any similar episodes while driving. His licensed retail supervisor has observed him zoning out after lunch. He also experiences blurred vision for a few seconds following these episodes. He has not undergone a sleep study before. He is currently on leave from work due to excessive daytime sleepiness and is scheduled to return on 03/24/2025. He was put on unpaid leave until 03/24/2025. He suspects that his blood pressure may be contributing to his symptoms. He has been taking his blood pressure medication at night since 2018. He is currently taking oxybutynin for his bladder, but has not noticed any improvement. He has beenon this medication for about 2 weeks. He has previously tried Myrbetriq and Vesicare, but found them ineffective. He is also taking Zyrtec for allergies. He is concerned about potential diabetes, as he recalls being told that his levels were borderline during his last check. Occupation: bender machine operator Sleep: Reports excessive daytime sleepiness, possibly related to sleep apnea Review of Systems Constitutional: Positive for fatigue. HENT: Negative. Respiratory: Negative for cough and wheezing. Cardiovascular: Positive for syncope. Gastrointestinal: Negative. Genitourinary: Negative. Musculoskeletal: Negative. Skin: Negative. Psychiatric/Behavioral: Positive for sleep disturbance. Objective Blood pressure (!) 148/88, temperature 98.2 ??F (36.8 ??C), height 5' 11 (1.803 m), weight (!) 411lb 9.6 oz (186.7 kg). Body mass index is 57.41 kg/m??. Physical Exam Mouth/Throat: Palate comes down far when saying 'ah'. Respiratory: Clear to auscultation, no wheezing, rales or rhonchi. Physical Exam Vitals and nursing note reviewed. Constitutional: Appearance: He is obese. HENT: Head: Normocephalic. Cardiovascular: Rate and Rhythm: Normal rate. Heart sounds: No murmur heard. Pulmonary: Effort: Pulmonary effort is normal. Breath sounds: No wheezing. Abdominal: Palpations: Abdomen is soft. Tenderness: There is no abdominal tenderness. Neurological: Mental Status: He is alert. Results Results for orders placed or performed in visit on 03/22/25 COMPREHENSIVE METABOLIC PANEL Result Value Ref Range Sodium 136 136 - 145 mmol/L Potassium 4.3 3.5 - 5.0 mmol/L Chloride 99 98 - 107 mmol/L Total CO2 25 22 - 29 mmol/L Anion Gap 12 7 - 16 mmol/L Calcium 8.6 8.6 - 10.4 mg/dL Glucose Lvl 138 (H) 70 - 99 mg/dL BUN 14 6 - 20 mg/dL Creatinine 0.66 (L) 0.67 - 1.30 mg/dL Albumin 3.8 3.5 - 5.2 gm/dL Total Protein 7.5 6.4 - 8.3 gm/dL Bili Total 0.2 0.2 - 1.4 mg/dL ALT 30 <=41 U/L AST 19 <=40 U/L Alk Phos 115 40 - 129 U/L eGFR (CKD-EPIcr 2020) 129 >=60 mL/min/1.73 m2 HEMOGLOBIN A1C Result Value Ref Range Hgb A1C 6.1 (H) 4.2 - 5.6 % Est. Avg Glucose 128 mg/dL Narrative REFERENCE RANGE: Normal: 4.0-5.6% Pre-diabetes: 5.7-6.4% Provisional diagnosis of diabetes: >6.4% Hgb F>10% and anything which shortens red cell survival, such as hemolytic anemia, or unstable hemoglobin variants such as HbSS, HbSC, or HbCC, will lower the HbA1c value associated with a given level of glycemic control. LIPID SCREEN Result Value Ref Range Cholesterol 141 <200 mg/dL Triglyceride 67 <150 mg/dL HDL 34 (L) >=40 mg/dL LDL Calculated 93 <100 mg/dL Non-HDL-C Calculated 107 <=129 mg/dL Fasting Specimen? Unknown None TSH REFLEX TO FT4 Result Value Ref Range TSH Reflex 1.800 0.270 - 4.200 mcIU/mL Narrative Ingestion of araceli doses of biotin (>5 mg/day) taken within 8 hours of drawing blood sample can interfere with this immunoassay test. The provider educated the patient (or legal b2b sales representative) on the use of the ambient listening artificial intelligence tool, Okta. They were informed that this AI tool [...] of such information, the patient (or legal b2b sales representative), and each individual in attendance with the patient, verbally consented to the use of the AI tool. documented in this encounter Plan of Treatment Upcoming Encounters Date Type Department Care Team (Late st Contact Info) Description 06/06/2025 11:00 AM EDT Office Visit [facility] [address] [address] Reinaldo Davis MD [address] [address] Scheduled Referrals Name Type Priority Associated Diagnoses Orde r Schedule AMB REFERRAL TO SLEEP STUDIES/MEDICINE Outpatient Referral Routine Excessive daytime sleepiness Ordered: 03/22/2025 documented as of this encounter Goals Goal Patient Goal Type Associated Problems Recent Progress Patient-Stated? Author Blood Pressure < 140/90 Blood Pressure 148/88( 025 8:08 AM EDT) No Natty, Chevy, DO Eat better, exercise, reach an ideal body weight General No Paris Stewart RMA documented as of this encounter Procedures Procedure Name Priority Date/Time Associated Diagnosis Comments TSH REFLEX TO FT4 Routine 03/22/2025 8:5 6 AM EDT Essential hypertension Annual physical exam HEMOGLOBIN A1C Routine 03/22/2025 8:56 AM EDT Essential hypertension Annual physical exam LIPID SCREEN Routine 03/22/2025 8:56 AM EDT Essential hypertension Annual physical exam COMPREHENSIVE METABOLIC PANEL Routine 03/22/2025 8:56 AM EDT Essential hypertension Annual physical exam documented in this encounter Results * TSH REFLEX TO FT4 (03/22/2025 8:56 AM EDT) TSH Reflex 1.800 0.270 - 4.200 mcIU/mL 03/22/2025 5:33 PM EDT [facility] Blood VENOUS BLOOD / Unknown Venipuncture / Unknown 03/22/2025 8:56 AM EDT 03/22/2025 8:56 AM EDT Narrative [facility] - 03/22/2025 5:33 PM EDT Ingestion of araceli doses of biotin (>5 mg/day) taken within 8 hours of drawing blood sample can interfere with this immunoassay test. us Leah Mackay MD CHEMISTRY ORDERABLES Final Res ult [facility] [address] [facility] , [place] [address] * (ABNORMAL) LIPID SCREEN (03/22/2025 8:56 AM EDT) Cholesterol 141 <200 mg/dL 03/22/2025 5:33 PM EDT [facility] Comment: < 200 Desirable 200 - 239 Borderline High >= 240 High Triglyceride 67 <150 mg/dL 03/22/2025 5:33 PM EDT [facility] Comment: < 150 Normal 150 - 199 Borderline High 200 - 499 High >= 500 Very High HDL 34(L) >=40 mg/dL 03/22/2025 5:33 PM EDT [facility] Comment: > 60 Optimal 40 - 60 Acceptable < 40 Low LDL Calculated 93 <100 mg/dL 03/22/2025 5:33 PM EDT [facility] Comment: < 100 Optimal 100 - 129 Near or above optimal 130 - 159 Borderline High 160 - 189 High >= 190 Very High The National Institutes of Health (NIH) equation is used for all lipid panels that report calculated LDL (LDL-C). Non-HDL-C Calculated 107 <=129 mg/dL 03/22/2025 5:33 PM EDT [facility] Comment: <130 Desirable 130-159 Above Desirable 160-189 Borderline High 190-219 High >= 220 Very High Fasting Specimen? Unknown None 025 5:33 PM EDT [facility] Blood VENOUS BLOOD / Unknown Venipuncture / Unknown 03/22/2025 8:56 AM EDT 03/22/2025 8:56 AM EDT us Leah Mackay MD CHEMISTRY ORDERABLES Final Res ult [facility] [address] [facility] , [place] [address] * (ABNORMAL) HEMOGLOBIN A1C (03/22/2025 8:56 AM EDT) Pathologist [facility] [place] Hgb A1C 6.1(H) 4.2 - 5.6 % 03/22/2025 4:31 PM EDT [facility] Est. Avg Glucose 128 mg/dL 03/22/2025 4:31 PM EDT [facility] Blood VENOUS BLOOD / Unknown Venipuncture / Unknown 03/22/2025 8:56 AM EDT 03/22/2025 8:56 AM EDT Narrative [facility] - 03/22/2025 4:31 PM EDT REFERENCE RANGE: Normal: 4.0-5.6% Pre-diabetes: 5.7-6.4% Provisional diagnosis of diabetes: >6.4% Hgb F>10% and anything which shortens red cell survival, such as hemolytic anemia, or unstable hemoglobin variants such as HbSS, HbSC, or HbCC, will lower the HbA1c value associated with a given level of glycemic control. us Leah Mackay MD CHEMISTRY ORDERABLES Final Res ult [facility] [address] [facility] , [address] [place] [id number] * (ABNORMAL) COMPREHENSIVE METABOLIC PANEL (03/22/2025 8:56 [...] 5:33 PM EDT [facility] Albumin 3.8 3.5 - 5.2 gm/dL 03/22/2025 5:33 PM EDT [facility] Total Protein 7.5 6.4 - 8.3 gm/dL 03/22/2025 5:33 PM EDT [facility] Bili Total 0.2 0.2 - 1.4 mg/dL 03/22/2025 5:33 PM EDT [facility] ALT 30 <=41 U/L 03/22/2025 5:33 PM EDT [facility] AST 19 <=40 U/L 03/22/2025 5:33 PM EDT [facility] Alk Phos 115 40 - 129 U/L 03/22/2025 5:33 PM EDT [facility] eGFR (CKD-EPIcr 2020) 129 >=60 mL/min/1.7 3 m2 03/22/2025 5:33 PM EDT [facility] Comment:Estimated GFR was ca lculated using the CKD-EPIcr (2020) equation refit without race. The equation is recommended by the National Kidney Foundation - [place] [employer] of Nephrology Task Force. Blood VENOUS BLOOD / Unknown Venipuncture / Unknown 03/22/2025 8:56 AM EDT 03/22/2025 8:56 AM EDT us Leah Mackay MD CHEMISTRY ORDERABLES Final Res ult [facility], [facility] [address] [facility] , [place] [address] documented in this encounter Visit Diagnoses Diagnosis Annual physical exam- Primary Routine general medical examination at a health care facility Excessive daytime sleepiness Essential hypertension Unspecified essential hypertension Chronic allergic rhinitis Allergic rhinitis, cause unspecified OAB (overactive bladder) Hypertonicity of bladder documented in this encounter Discontinued Medications Medication Sig Discontinue Reason Start Date End Da te mirabegron (MYRBETRIQ) 50 mg Oral Tablet Sustained Release 24 hr Take 1 Tablet by mouth daily. Cancelled by 09/09/2024 03/22/2025 solifenacin (VESICARE) 5 mg Oral Tablet Take 1 Tablet by mouth daily. Cancelled by 09/09/2024 03/22/2025 oxybutynin (DITROPAN-XL) 10 mg Oral Tablet Extended Rel 24 hr Take 10 mg by mouth daily. Cancelled by 03/07/2025 03/22/2025 cetirizine (ZYRTEC) 10 mg Oral TabletIndications:Seasona l allergic rhinitis, unspecified trigger Take 1 Tablet by mouth nightly. Cancelled by 10/18/2023 03/22/2025 documented as of this encounter Care Teams Title Abstractor Relationship Specialty Start Date End Date Leah Mackay MD [address] [place] [address] PCP - General Family Medicine 01/05/16 documented as of this encounter
[2025-04-03] VITALS (7 sets, daily range): BP systolic 100–167; BP diastolic 72–94; PULSE 92–113; RESP 20; TEMP 36.4; O2SAT 96–98; BMI 56.3
--- OUTSIDE RECORDS SUMMARY | 2025-04-03 22:38 | XMS_ITS | Clinical Summary ---
Author Organization [employer] [facility] are Address [address] [place] [id number] Phone Care Team Providers Care Electrical Design Engineer Name Role Phone Katelynn Green APRN Primary [...]
--- OUTSIDE RECORDS SUMMARY | 2025-04-03 22:39 | XMS_ITS | Clinical Summary ---
Author Organization Healthcare Address [address] [place] [address] Care Team Providers Care Batch Freezer Operator Name Role Phone Unavailable Primary Care Provider Unavailabl e Encounters Date Type Department Care Team Description 03/28/2025 Telephone [facility] [address], [address] [place] [address] Mirna Stone RN 03/14/2025 Orders Only External Location [address] [place] [address] Provider, External 02/17/2025 Orders Only External Location [address] [place] [address] Provider, External from Last 3 Months Social History Tobacco Use Types Packs/Day Years Used Date Smoking Tobacco: Never Assessed Sex and Gender Information Value Date Recorded Sex Assigned at Not on file Legal Sex Male 10:47 AM EDT Gender Identity Not on file Sexual Orientation Not on file Plan of Treatment Health Maintenance Due Date Last Done Comments [facility]-Depression Screening 1993 [facility]-HIV Screening 1993 [facility]-Hepatitis C Screening 1993 [facility]-/Child/Adol SDOH Screenings 1993 [facility]-Varicella Vaccines (1 of 2 - 13+ 2-dose series) 2006 [facility]- SDOH Screenings 2011 [facility]-Adult SDOH Screenings 2011 [facility]-DTaP,Tdap,and Td Vaccine s (1 - Tdap) 2012 [facility]-Hepatitis B Vaccines (1 of 3 - 19+ 3-dose series) 2012 HPV Vaccines (1 - 3-dose SCD M series) 2020 PXL-BZMGE-21 Vaccine (1 - 20 24-25 season) 2024 [facility]-Influenza Vaccine (#1) 2025 [facility]-Zoster Vaccines (1 of 2) 2043 [facility]-HIB Vaccines Aged Out No longer e ligible based on patient's age to complete this topic [facility]-Hepatitis A Vaccines Aged Out No longer eligible based on patient's age to complete this topic [facility]-IPV Vaccines Aged Out No longer e ligible based on patient's age to complete this topic [facility]-Pneumococcal Vaccine: Pediatrics (0 to 5 Years) and At-Risk Patients (6 to 49 Years) Aged Out No long er eligible based on patient's age to complete this topic [facility]-Rotavirus Vaccines Aged Out No lo nger eligible based on patient's age to complete this topic Procedures Procedure Name Priority Date/Time Associated Diagnosis Comments US ABDOMEN OUTSIDE IMAGES 03/14/2025 1:15 PM EDT US OUTSIDE IMAGES 02/17/2025 2:52 PM EDT from Last 3 Months Results * US ABDOMEN OUTSIDE IMAGES (03/14/2025 1:15 PM EDT) Anatomical Region Laterality Modality Ultrasound 03/14/2025 1:15 PM EDT us External Provider IMG US PROCEDURES Final Result * US OUTSIDE IMAGES (02/17/2025 2:52 PM EDT) Anatomical Region Laterality Modality Ultrasound 02/17/2025 2:52 PM EDT us External Provider IMG US PROCEDURES Final Result from Last 3 Months Insurance [facility]
--- OUTSIDE RECORDS SUMMARY | 2025-04-03 22:39 | XMS_ITS | Encounter Summary ---
Author Organization Healthcare Address [address] [place] [address] Care Team Providers Care Tutor Name Role Phone Unavailable Primary Care Provider Unavailabl e Encounter Details Date Type Department Care Team (Late st Contact Info) Description 03/28/2025 Telephone [facility] [address] [place] [address] Mirna Stone I, RN [facility] Social History Tobacco Use Types Packs/Day Years Used Date Smoking Tobacco: Never Assessed Sex and Gender Information Value Date Recorded Sex Assigned at Not on file Legal Sex Male 10:47 AM EDT Gender Identity Not on file Sexual Orientation Not on file documented as of this encounter Miscellaneous Notes * Telephone Encounter - Mirna Stone I, RN - 03/28/2025 7:56 AM EDT Called to schedule urology appointment; no answer, no vm. documented in this encounter Plan of Treatment Not on file documented as of this encounter Visit Diagnoses Not on filedocumented in this encounter
--- OUTSIDE RECORDS SUMMARY | 2025-04-03 22:39 | XMS_ITS | Encounter Summary ---
Author Organization [place] [address] Care Team Providers Care Shook Splicer Name Role Phone Leah Mackay MD Primary Care Provider [phone] Reason for Visit * Reason Onset Date Comments Refill 03/07/2025 x2 Encounter Details Date Type Department Care Team (Late st Contact Info) Description 03/07/2025 Telephone [facility] [address] [place] [address] Leah Mackay MD [address] [place], [place] [id number] Refill (x2) Social History Tobacco Use Types [...] place to sleep or slept in a half-way (including now)? No 10/09/2023 Sex and Gender [...] of Assessment Author No 06/19/2024 10:56 AM Julinana Jeffers RMA * Does this person have [...] EDT) famotidine (PEPCID) 40 mg Oral Tablet [[id number]] Disp Refills Start End lisinopriL-hydrochlorothiazide (PRINZIDE;ZESTORETIC) 10-12.5 [...] EDT) lisinopriL-hydrochlorothiazide (PRINZIDE;ZESTORETIC) 10-12.5 mg Oral Tablet [[id number]] Did patient contact the pharmacy first: No How many days left on hand: 0 Future appt date w/ prescribing provider: 03/11 [facility]acy & Location: [facility] Method of Communication: Phone Call Additional Information: N/A documented in this encounter Plan of Treatment Upcoming Encounters Date Type Department Care Team (Late st Contact Info) Description 06/06/2025 11:00 AM EDT Office Visit [facility] [address] [address] Reinaldo Davis MD [address] [place] [phone] documented as of this encounter Goals Goal Patient Goal Type Associated Problems Recent Progress Patient-Stated? Author Blood Pressure < 140/90 Blood Pressure 148/88( 025 8:08 AM EDT) No Natty, Chevy, DO Eat better, exercise, reach an ideal body weight General No Paris Stewart, RMA documented as of this encounter Visit Diagnoses Diagnosis Gastroesophageal reflux disease with esophagitis without hemorrhage Essential hypertension Unspecified essential hypertension documented in this encounter Care Teams Shook Splicer Relationship Specialty Start Date End Date Leah Mackay MD [address] [place] [address] PCP - General Family Medicine 01/05/16 documented as of this encounter
--- OUTSIDE RECORDS SUMMARY | 2025-04-03 22:39 | XMS_ITS | Encounter Summary ---
Author Organization Healthcare Address [address] [place] [address] Care Team Providers Care Newspaper Correspondent Name Role Phone Unavailable Primary Care Provider Unavailabl e Encounter Details Date Type Department Care Team (Late st Contact Info) Description 02/17/2025 Orders Only External Location [address] [place] [address] Provider, External Social History Tobacco Use Types Packs/Day Years Used Date Smoking Tobacco: Never Assessed Sex and Gender Information Value Date Recorded Sex Assigned at Not on file Legal Sex Male 10:47 AM EDT Gender Identity Not on file Sexual Orientation Not on file documented as of this encounter Plan of Treatment Not on file documented as of this encounter Procedures Procedure Name Priority Date/Time Associated Diagnosis Comments US OUTSIDE IMAGES 02/17/2025 2:52 PM EDT documented in this encounter Results * US OUTSIDE IMAGES (02/17/2025 2:52 PM EDT) Anatomical Region Laterality Modality Ultrasound 02/17/2025 2:52 PM EDT us External Provider IMG US PROCEDURES Final Result documented in this encounter Visit Diagnoses Not on filedocumented in this encounter
--- OUTSIDE RECORDS SUMMARY | 2025-04-03 22:39 | XMS_ITS | Encounter Summary ---
Author Organization [place] [address] Care Team Providers Care Environmental Law Professor Name Role Phone Leah Mackay MD Primary Care Provider [phone] Encounter Details Date Type Department Care Team (Late st Contact Info) Description 03/27/2025 Results Follow-Up [facility] [address] [place] [address] Leah Mackay MD [address] [place], [place] [id number] COMPREHENSIVE METABOLIC PANEL, HEMOGLOBIN A1C, LIPID SCREEN, TSH REFLEX TO FT4 Social History Tobacco Use Types Packs/Day Years Used Date Smoking Tobacco: Never Smokeless Tobacco: Never Alcohol Use Standard Drinks/Week Comments No 0 (1 standard drink = 0.6 oz pur e alcohol) Overall Financial Resource Strain (CARDI) Answe r Date Recorded How hard is [...] place to sleep or slept in a fdc (including now)? No 10/09/2023 Sex and Gender [...] 03/10/2025 3:04 PM EDMehul Tang MA * Does this person have serious difficulty walking or climbing stairs? Answer Date of Assessment Author No 03/10/2025 3:04 PM Mehul Ornelas MA * Does this person have difficulty dressing or bathing? Answer Date of Assessment Author No 03/10/2025 3:04 PM Mehul Ornelas MA * Because of a physical, mental or emotional condition, does this person have difficulty doing errands alone such as visiting a doctor's office or shopping? Answer Date of Assessment Author No 03/10/2025 3:04 PM Mehul Ornelas MA documented as of this encounter Mental Status * Because of a physical, mental or emotional condition, does this person have serious difficulty concentrating, remembering or making decisions? Answer Entry Date Author No 03/10/2025 3:04 PM EDT Mehul Blair MA documented in this encounter Plan of Treatment Upcoming Encounters Date Type Department Care Team (Late st Contact Info) Description 06/06/2025 11:00 AM EDT Office Visit [facility] [address] [address] Reinaldo Davis MD [address] [place] [phone] documented as of this encounter Goals Goal Patient Goal Type Associated Problems Recent Progress Patient-Stated? Author Blood Pressure < 140/90 Blood Pressure 148/88( 025 8:08 AM EDT) No Natty, Chvey, DO Eat better, exercise, reach an ideal body weight General No Paris Stewart, CARSON documented as of this encounter Visit Diagnoses Not on filedocumented in this encounter Care Teams Environmental Law Professor Relationship Specialty Start Date End Date Leah Mackay MD [address] [place] [address] PCP - General Family Medicine 01/05/16 documented as of this encounter
--- OUTSIDE RECORDS SUMMARY | 2025-04-03 22:39 | XMS_ITS | Encounter Summary ---
Author Organization Healthcare Address [address] [place] [address] Care Team Providers Care Pump Runner Name Role Phone Unavailable Primary Care Provider Unavailabl e Encounter Details Date Type Department Care Team (Late st Contact Info) Description 03/14/2025 Orders Only External Location [address] [place] [address] Provider, External Social History Tobacco Use Types [...] ABDOMEN OUTSIDE IMAGES 03/14/2025 1:15 PM EDT documented in this encounter Results * US ABDOMEN OUTSIDE IMAGES (03/14/2025 1:15 PM EDT) Anatomical Region Laterality Modality Ultrasound 03/14/2025 1:15 PM EDT us External Provider IMG US PROCEDURES Final Result documented in this encounter Visit Diagnoses Not on filedocumented in this encounter
--- OUTSIDE RECORDS SUMMARY | 2025-04-03 22:39 | XMS_ITS | Clinical Summary ---
Author Organization [facility] Address [address] [place] [address] Phone Care Team Providers Care Environmental Sampling Technician Name Role Phone Leah Mackay MD Primary Care Provider [phone] Allergies Active Allergy Reactions Criticality Noted Date [...] Oral Tablet Take by mouth daily. Active tamsulosin (FLOMAX) 0.4 mg Oral Capsule Take 0.4 mg by mouth daily. 5 Active famotidine (PEPCID) 40 mg Oral TabletIndications :Gastroesophageal reflux disease with esophagitis without hemorrhage Take 1 Tablet by mouth every evening. 30 Tablet 5 Active lisinopriL-hydroc hlorothiazide (PRINZIDE;ZESTORE TIC) 10-12.5 mg Oral TabletIndications :Essential hypertension Take 1 Tablet by mouth daily. 30 Tablet 5 5 Active fexofenadine (HARMAN ALLERGY) 180 mg Oral TabletIndications :Chronic allergic rhinitis Take 1 Tablet by mouth daily. 90 Tablet 3 5 Active tolterodine (DETROL LA) 4 mg Oral Capsule, Sust. Release 24 hrIndications:OAB (overactive bladder) Take 1 Capsule by mouth daily. For bladder 90 Capsule 3 Active Active Problems Patient Care Coordination No [...] Encounters Date Type Department Care Team Description 03/27/2025 Results Follow-Up [address] [phone] Leah Mackay MD COMPREHENSIVE METABOLIC PANEL, HEMOGLOBIN A1C, LIPID SCREEN, TSH REFLEX TO FT4 03/22/2025 8:00 AM EDT Office Visit [address] [phone] Leah Mackay MD Annual physical exam (Primary Dx); Excessive daytime sleepiness; Essential hypertension; Chronic allergic rhinitis; OAB (overactive bladder) 03/10/2025 2:45 PM EDT Office Visit [address] [phone] Leah Mackay MD Annual physical exam (Primary Dx); Dysuria; OAB (overactive bladder); Urinary incontinence, unspecified type; Essential hypertension; Gastroesophageal reflux disease with esophagitis without hemorrhage; Obesity, morbid, BMI 50 or higher ([facility]); History of asthma 03/07/[address] [address] Leah Mackay MD Refill (x2) 01/23/[address] [address] Niko Higginbotham MD Medication Refill; Central [...] hernia repair; Surgeon: Catarino Trujillo MD; Location: [facility] OR; Service: General CYSTOSCOPY 09/02/2024 in [...] Paternal Grandmother sofía dishar Problems Paternal Grandmother sofía dishar Heart Disease Paternal Grandmother sofía dishar High Blood Pressure Paternal Grandmother sofía dishar Hypertension Paternal Grandmother sofía dishar Kidney Disease Paternal Grandmother sofía dishar Urolithiasis Paternal Grandmother sofía dishar Arthritis Sister Vannesa Lofton severe arthriti s Asthma Sister Vannesa Lofton Learning Disabilities Sister Vannesa Lofton Anesth Problems Neg Hx Relation Name Status Comments Father Angelia Hooper Alive Maternal Grandfather Maternal Grandmother Margarita Askew Mother Yvette Hooper Alive Paternal Grandfather Paternal [...] place to sleep or slept in a longterm (including now)? No 10/09/2023 Sex and Gender Information Value Date Recorded Sex Assigned at Not on file Legal Sex Male 7:56 AM EDT Gender Identity Not on file Sexual Orientation Not on file Obstetrics History Last Filed Vital Signs Vital Sign Reading Time Taken Comments Blood Pressure 148/88 03/22/2025 8:08 AM EDT Pulse 108 09/09/2024 9:35 AM EST Temperature 36.8 C (98.2 F) 03/22/2025 8:08 AM EDT Respiratory Rate 16 09/01/2024 10:1 1 AM EST Oxygen Saturation 96% 09/09/2024 9:35 AM EST Inhaled Oxygen Concentration - - Weight 186.7 kg (411 lb 9.6 oz) 03/22/2025 8:08 AM EDT Height 180.3 cm (5' 11 ) 03/22/2025 8:08 AM EDT Body Mass Index 57.41 03/22/2025 8:08 AM EDT Plan of Treatment Upcoming Encounters Date Type Department Care Team (Late st Contact Info) Description 06/06/2025 11:00 AM EDT Office Visit [facility] Sleep Medicine [address] [phone] Reinaldo Davis MD [address] [place] [phone] Health Maintenance Due Date Last Done Comments Influenza Vaccine (#1) 2025 4, 05/10/2023, 05/18/2022, Additional history exists Annual Wellness Exam 03/22/2026 03/22/2025, 01/05/20 16 DTaP/TDaP/Td (2 - Td or Tdap) 06/02/2030 [...] an ideal body weight General No Paris Setwart RMA Procedures Procedure Name Priority Date/Time Associated Diagnosis Comments TSH REFLEX TO FT4 Routine 03/22/2025 8:5 6 AM EDT Essential hypertension Annual physical exam LIPID SCREEN Routine 03/22/2025 8:56 AM EDT Essential hypertension Annual physical exam HEMOGLOBIN A1C Routine 03/22/2025 8:56 AM EDT Essential hypertension Annual physical exam COMPREHENSIVE METABOLIC PANEL Routine 03/22/2025 8:56 AM EDT Essential hypertension Annual physical exam from Last 3 Months Results * TSH REFLEX TO FT4 (03/22/2025 8:56 AM EDT) TSH Reflex 1.800 0.270 - 4.200 mcIU/mL 03/22/2025 5:33 PM EDT [facility] Blood VENOUS BLOOD / Unknown Venipuncture / Unknown 03/22/2025 8:56 AM EDT 03/22/2025 8:56 AM EDT Narrative [facility] - 03/22/2025 5:33 PM EDT Ingestion of araceli doses of biotin (>5 mg/day) taken within 8 hours of drawing blood sample can interfere with this immunoassay test. us Leah Mackay MD CHEMISTRY ORDERABLES Final Res ult Performing Organization Address [facility] Co de Phone Number [facility] [employer] [address] , [place] [address] * (ABNORMAL) HEMOGLOBIN A1C (03/22/2025 8:56 AM EDT) Hgb A1C 6.1(H) 4.2 - 5.6 % 03/22/2025 4:31 PM EDT [facility] [employer] Est. Avg Glucose 128 mg/dL 03/22/2025 4:31 PM EDT [facility] [employer] [facility] Blood VENOUS BLOOD / Unknown Venipuncture / Unknown 03/22/2025 8:56 AM EDT 03/22/2025 8:56 AM EDT Narrative [facility] [employer] [facility] - 03/22/2025 4:31 PM EDT REFERENCE RANGE: Normal: 4.0-5.6% Pre-diabetes: 5.7-6.4% Provisional diagnosis of diabetes: >6.4% Hgb F>10% and anything which shortens red cell survival, such as hemolytic anemia, or unstable hemoglobin variants such as HbSS, HbSC, or HbCC, will lower the HbA1c value associated with a given level of glycemic control. us Leah Mackay MD CHEMISTRY ORDERABLES Final Res ult Performing Organization Address [facility] de Phone Number [facility] [employer] [address] [place] [address] , [place] [address] * (ABNORMAL) LIPID SCREEN (03/22/2025 8:56 AM EDT) Cholesterol 141 <200 mg/dL 03/22/2025 5:33 PM EDT [employer] Comment: < 200 Desirable 200 - 239 Borderline High >= 240 High Triglyceride 67 <150 mg/dL 03/22/2025 5:33 PM EDT [facility] [employer] [employer] Comment: < 150 Normal 150 - 199 Borderline High 200 - 499 High >= 500 Very High HDL 34(L) >=40 mg/dL 03/22/2025 5:33 PM EDT [facility] Comment: > 60 Optimal 40 - 60 Acceptable < 40 Low LDL Calculated 93 <100 mg/dL 03/22/2025 5:33 PM EDT [facility] Comment: < 100 Optimal 100 - 129 Near or above optimal 130 - 159 Borderline High 160 - 189 High >= 190 Very High The National Institutes of Health (NIH) equation is used for all lipid panels that report calculated LDL (LDL-C). Non-HDL-C Calculated 107 <=129 mg/dL 03/22/2025 5:33 PM EDT [facility] Comment: <130 Desirable 130-159 Above Desirable 160-189 Borderline High 190-219 High >= 220 Very High Fasting Specimen? Unknown None 025 5:33 PM EDT [facility] Blood VENOUS BLOOD / Unknown Venipuncture / Unknown 03/22/2025 8:56 AM EDT 03/22/2025 8:56 AM EDT us Leah Mackay MD CHEMISTRY ORDERABLES Final Res ult [facility] [address] [facility] , [place] [address] * (ABNORMAL) COMPREHENSIVE METABOLIC PANEL (03/22/2025 8:56 AM EDT) Sodium 136 136 - 145 mmol/L 03/22/2025 5:33 PM EDT [facility] Potassium 4.3 3.5 - 5.0 mmol/L 03/22/2025 5:33 PM EDT [facility] Chloride 99 98 - 107 mmol/L 03/22/2025 5:33 PM EDT [facility] Total CO2 25 22 - 29 mmol/L 03/22/2025 5:33 PM EDT [facility] Anion Gap 12 7 - 16 mmol/L 03/22/2025 5:33 PM EDT [facility] Calcium 8.6 8.6 - 10.4 mg/dL 03/22/2025 5:33 PM EDT [facility] Glucose Lvl 138(H) 70 - 99 mg/dL [...] - 8.3 gm/dL 03/22/2025 5:33 PM EDT [facility] Bili Total 0.2 0.2 - 1.4 mg/dL 03/22/2025 5:33 PM EDT [facility] ALT 30 <=41 U/L 03/22/2025 5:33 PM EDT [facility] AST 19 <=40 U/L 03/22/2025 5:33 PM EDT [facility] Alk Phos 115 40 - 129 U/L 03/22/2025 5:33 PM EDT [facility] eGFR (CKD-EPIcr 2020) 129 >=60 mL/min/1.7 3 m2 03/22/2025 5:33 PM EDT [facility] Comment:Estimated GFR was ca lculated using the CKD-EPIcr (2020) equation refit without race. The equation is recommended by the National Kidney Foundation - [employer] Society of Nephrology Task Force. Blood VENOUS BLOOD / Unknown Venipuncture / Unknown 03/22/2025 8:56 AM EDT 03/22/2025 8:56 AM EDT us Leah Mackay MD CHEMISTRY ORDERABLES Final Res ult [facility] [address] [facility] , [place] [address] from Last 3 Months Insurance [facility] PPO ANTHEM PPO Care Teams Environmental Sampling Technician Relationship Specialty Start Date End Date Leah Mackay MD [address] [place] [id number] PCP - General Family Medicine 01/05/16
[2025-04-03 22:51] LABS: Microscopic, Urine URINE MICROSCOPIC (MICROSCOPIC)
[2025-04-03 22:58] LABS: Bilirubin,Urine Negative (Negative); Color,Urine YELLOW (Yellow); Glucose,Urine (UA) Negative (Negative); Ketones,Urine Negative (Negative); Leukocyte Esterase,Urine Negative (Negative); PH,Urine 6.0 (5.0-8.5); Protein,Urine Negative (Negative); Specific Gravity, Urine 1.020 (1.005-1.030); Urobilinogen,Urine 0.2 EU/dl (0.2)
--- NOTE | 2025-04-03 23:00 | ECG_ITS ---
APPROVED REPORT Exam: Resting ECG HR:97 bpm ECG Measurements Heart Rate 97 AXES NM 204 P 38 QRSd 110 QRS 93 QT 333 T 24 QTc 388 Conclusion SINUS RHYTHM BORDERLINE RIGHT AXIS DEVIATION [QRS AXIS > 90] LOW QRS VOLTAGE IN PRECORDIAL LEADS [QRS DEFLECTION < 1.0 mV IN CHEST LEADS] No STEMI Electronically signed by : HUI HERNANDEZ, 04/04/2025 02:55:09
[2025-04-03 23:07] LABS: Hematocrit 43.5 % (42.0-52.0); Hemoglobin 13.5 g/dL (14.1-18.0); Immature Granulocytes % 0.3 %; Mean Corpuscular HGB Conc 31.0 g/dL (31.8-35.4); Mean Corpuscular Hemoglobin 25.8 pg (27.0-31.2); Mean Corpuscular Volume 83.2 fl (80-94); Nucleated Red Blood Cells % 0 %; Platelet Count 381 K/mm3 (142-424); Red Blood Count 5.23 M/mm3 (4.60-6.20); Red Cell Distribution Width-SD 42.6 fL; White Blood Count 11.6 K/mm3 (4.8-10.8)
[2025-04-03 23:17] LABS: WBC,Urine Occasional #/hpf (0-3)
[2025-04-03 23:20] LABS: Albumin Level 4.3 g/dl (3.5-5.0); Chloride 98 mmol/L (98-107); Sodium 135 mmol/L (136-145)
[2025-04-03 23:21] LABS: Potassium 3.5 mmoL/L (3.5-5.1)
[2025-04-03 23:23] LABS: Alanine Aminotransferase 41 U/L (12-78); Albumin/Globulin Ratio 1.1 (1.1-1.8); Alkaline Phosphatase 111 U/L (38-126); Anion Gap 10.5 mEq/L (5-15); Aspartate Amino Transferase 32 U/L (17-59); Bilirubin,Total 0.4 mg/dl (0.2-1.3); Blood Urea Nitrogen 12 mg/dl (9-20); Carbon Dioxide 30 mmol/L (22.0-30.0); Creatinine Clearance Estimated 163 mL/min (50-200); Creatinine,Serum 0.70 mg/dl (0.66-1.25); Estimated Glomerular Filt Rate 132 ml/min (>60); GFR (African American) 159 ML/MIN (>60); Globulin 3.8 g/dL (1.3-3.2); INR 1.03 (0.9-1.1); Prothrombin Time 11.4 seconds (10.1-12.5); Total Protein,Serum 8.1 g/dl (6.3-8.2)
[2025-04-03 23:24] LABS: Calcium 8.8 mg/dl (8.4-10.2); Glucose 110 mg/dl (74-100); Lipase 34 U/L (23-300)
[2025-04-03 23:43] LABS: Troponin I < 0.01 ng/ml (0.00-0.034)
--- NOTE | 2025-04-03 23:57 | CT_ITS ---
PROCEDURE INFORMATION: Exam: CT Abdomen And Pelvis With Contrast Exam date and time: 04/04/2025 12:16 AM Age: 29 years old Clinical indication: Abdominal pain; Additional info: Painful umbilical hernia TECHNIQUE: Imaging protocol: Computed tomography of the abdomen and pelvis with contrast. Radiation optimization: All CT scans at this facility use at least one of these dose optimization techniques: automated exposure control; mA and/or kV adjustment per patient size (includes targeted exams where dose is matched to clinical indication); or iterative reconstruction. Contrast material: ISOVUE; Contrast volume: 75 ml; Contrast route: IV; COMPARISON: CT ABDOMEN PELVIS WO CON 09/27/2023 10:42 AM FINDINGS: Liver: Fatty infiltration. Measures 21 cm. No mass. Gallbladder and biliary ducts: Unremarkable. Pancreas: Unremarkable. Spleen: Unremarkable. Adrenal glands: Unremarkable. No mass. Kidneys and ureters: No nephroureterolithiasis or hydroureter. Stomach and bowel: Unremarkable. No obstruction. No mucosal thickening. Appendix: Not visualized. No obvious pericecal fat stranding. Intraperitoneal space: Faint mesenteric fat stranding. Vasculature: Unremarkable. No abdominal aortic aneurysm. Lymph nodes: Shotty retroperitoneal/mesenteric lymph nodes without lymphadenopathy. Urinary bladder: Unremarkable as visualized. Reproductive: Unremarkable as visualized. Bones/joints: Unremarkable. No acute fracture. Soft tissues: Fat and bowel containing nonobstructive periumbilical hernia. IMPRESSION: 1. Nonobstructive fat and bowel containing periumbilical hernia. 2. Fatty liver infiltration. 3. Low-grade lymphadenitis.
[2025-04-04] VITALS (15 sets, daily range): BP systolic 112–141; BP diastolic 66–96; PULSE 89–105; RESP 16–18; TEMP 36.4–36.9; O2SAT 95–99
[2025-04-04] MEDS: SODIUM CHLORIDE 0.9% 10ML SYR (RAD ONLY) 10 ML IV (00:23)
[2025-04-04] MEDS: IOPAMIDOL-370 (76%);100ML BOTTLE 75 ML IV (00:23)
[2025-04-04] MEDS: ONDANSETRON 4MG/2ML VIAL 4 MG IV (01:07)
[2025-04-04] MEDS: LACTATED RINGERS 1000ML 1,000 ML 999 ML IV (01:07)
--- NOTE | 2025-04-04 01:54 | HMH.EDGENADL ---
Discharge Plan Disposition Patient Disposition: Home, Self-Care Condition: Good Prescriptions Prescriptions: New ondansetron 4 mg tablet,disintegrating 4 mg PO Q6H PRN (Reason: Nausea And Vomiting) Qty: 10 0RF No Action losartan 50 mg tablet 50 mg PO DAILY meloxicam 7.5 mg tablet 7.5 mg PO DAILY 30 Days Qty: 30 2RF oxybutynin chloride 10 mg tablet extended release 24hr 10 mg PO DAILY 90 Days Qty: 90 0RF tamsulosin [Flomax] 0.4 mg capsule 0.4 mg PO DAILY 90 Days Qty: 90 0RF metronidazole 500 MG tablet 0 mg PO Q8 Qty: 30 0RF Referrals Follow up/Referrals: Ronnell Arredondo MD [Staff Physician, General Surgery] - See instructions Referral Note: Umbilical hernia causing problems but not strangulated Leah Mackay [Primary Care Provider, Medical] - See instructions Activity Restrictions/Add. Instructions Additional Instructions/Restrictions: You were evaluated in the ER and are believed to be appropriate for discharge at this time. Take the prescribed Zofran if needed for nausea. Drink plenty of water to maintain good hydration. Please monitor your diet, losing weight will help optimize you for surgery to have this hernia repaired. Follow-up with general surgery, you have been referred to Dr. Arredondo for this purpose. Call his office for an appointment. Also follow-up with your primary care doctor for reevaluation. Return to the ER with any new, worsening, or otherwise concerning symptoms including but not limited to severe abdominal pain, discoloration over the hernia, or anything else you are worried about. Clinical Impressions Clinical Impression: Hernia, umbilical, Morbid obesity Instructions Patient Instructions: DI for Acute Abdominal Pain Print Language Print Language: Icelandic Discharge ED Provider: Shirley Underwood General Adult HPI General Chief complaint: Abdominal Pain Stated complaint: Stomach hernia Time Seen by Provider: 04/03/25 22:59 Mode of Arrival: Ambulatory Source of Information: Patient Description of Symptoms (Recalled from ER Triage Doc. by RN): Pt presents with c/o abdominal pain due to an umbilical hernia. Pt states he had 4 hernias repaired at [facility] in Aug 2023. Pt states he started to have pain x 5 days that has become progressively worse. Pt reports having reflux and vomiting since friday. Reports he threw up 26 times. History of Present Illness HPI narrative: 29-year-old obese male with history of ureterolithiasis, umbilical hernia presents to the ER for complaints of abdominal pain and worried about his hernia. Patient reports he has had 4 hernias repaired in the past at [facility] in 2023. He started having pain at his hernia site 5 days ago. He states Friday, 2 days ago, he had significant pain and the hernia itself was hard, he had nausea and vomiting that day as well. Nonbloody, nonbilious. Since that time the hernia has softened up and he no longer has nausea or vomiting. He states it is not painful now unless he bends over or crouches down. He is not having any diarrhea or constipation, normal bowel movement earlier today. No dysuria or hematuria. No fevers or chills. No discoloration overlying the hernia. Patient states when it was hard and painful on Friday it sounded like it was making gurgling sounds . He states today his pain is significantly better but he is still worried about it so he came for evaluation Related Data Home Medications ?Medication ?Instructions ?Recorded ?Confirmed losartan 50 mg tablet 50 mg PO DAILY 09/05/20 03/21/25 Previous Rx's ?Medication ?Instructions ?Recorded meloxicam 7.5 mg tablet 7.5 mg PO DAILY pain 30 days #30 09/05/20 tabs metronidazole 500 mg tablet 0 mg (0 x 500 mg) PO Q8 #30 tabs 04/01/22 oxybutynin chloride 10 mg 10 mg PO DAILY 90 days #90 tabs 03/21/25 tablet,extended release 24 hr tamsulosin 0.4 mg capsule (Flomax) 0.4 mg PO DAILY 90 days #90 caps 03/21/25 ondansetron 4 mg disintegrating 4 mg PO Q6H PRN Nausea And 04/04/25 tablet Vomiting #10 tabs Allergies Allergy/AdvReac Type Severity Reaction Status Date / Time cefaclor (From [facility]) Allergy Unknown Verified 03/21/25 14:05 [facility] Disclaimer: The information contained in this section may have been updated after the patient was seen, as this information can be updated by other users. Social History Smoking Status: Never smoker alcohol intake: never substance use type: denies use current occupational status: other Travel in the last 8 weeks?: None Have you lived/traveled outside [place] in past 30 days?: No Contact w/someone who lives/traveled outside US past 30 days?: No Exposure to someone with infectious disease in past 14 days?: No Do you have a fever (greater than 100.4 F or 38 C)?: No Have you tested positive for COVID-19?: No Exposed to someone with COVID-19 in past 14 days?: No Do you have a sore throat?: No Do you have a cough?: No Do you have any weakness?: No Do you have any diarrhea?: No Are you experiencing any unusual bleeding?: No Do you have any muscle aches/pain?: No Do you have any abdominal pain?: No Are you experiencing loss of taste or smell?: No Other Medical History Have you received the Flu Vaccine for this season: Yes Have you received the Pneumonia Vaccine: No ROS Obtained: Yes Systems reviewed as appropriate & no additional complaints except as documented Per HPI Physical Exam General General appearance: alert, in no apparent distress and obese Head Head exam: atraumatic and normocephalic Eye Eye exam: Present PERRL and EOMI ENT ENT exam: Present mucous membranes moist Neck Neck exam: Present normal inspection and full ROM Chest Chest inspection: Present symmetric chest wall rise Respiratory Respiratory exam: Present normal lung sounds bilaterally; Absent respiratory distress, wheezes or stridor Cardiovascular Cardiovascular exam: Present regular rate and normal rhythm Abdominal Exam Abdominal exam: Present soft, tenderness (Very mild at the periumbilical area) and hernia (Moderate sized umbilical hernia is soft, the hernia itself is nontender and there is no overlying skin discoloration, the area surrounding the hernia is mildly tender but no erythema or induration.); Absent distention, guarding or rebound Comment: No peritonitic findings Extremities Exam Extremities exam: Present full ROM; Absent edema Neurological Exam Neurological exam: Present alert and oriented X3; Absent motor sensory deficit Psychiatric Psychiatric exam: Present normal affect and normal mood Skin Skin exam: Present warm and dry Medical Decision Making Medical Records Medical records reviewed: Yes I reviewed the patient's medical records. Screening: Per USPSTF and CDC recommendations, given the prevalence of disease in our region, it is our hospital?s policy to screen for HIV and viral Hepatitis for all patients aged 18 and over and those with ongoing risk factors. [place] Inquiry Pt receiving controlled substance: No Vital Signs: 04/03/25 22:30 04/03/25 23:15 04/03/25 23:29 Temperature 97.6 F Temperature Source Oral Pulse Rate 113 H Pulse Rate [Right] 107 H Respiratory Rate 20 Blood Pressure 100/75 L Blood Pressure [Right Arm] 167/94 H Blood Pressure Mean 82 Blood Pressure Mean [Right Arm] 118 Blood Pressure Source [Right Arm] Automatic Cuff Blood Pressure Position [Right Arm] Sitting 02 Sat by Pulse Oximetry 98 96 Oxygen Delivery Method Room Air 04/03/25 23:30 04/03/25 23:40 04/03/25 23:45 Temperature Temperature Source Pulse Rate 95 H 92 H Pulse Rate [Right] Respiratory Rate Blood Pressure 122/72 Blood Pressure [Right Arm] Blood Pressure Mean 81 Blood Pressure Mean [Right Arm] Blood Pressure Source [Right Arm] Blood Pressure Position [Right Arm] 02 Sat by Pulse Oximetry 97 96 Oxygen Delivery Method 04/03/25 23:50 04/03/25 23:50 04/04/25 00:00 Temperature Temperature Source Pulse Rate 95 H 99 H Pulse Rate [Right] Respiratory Rate Blood Pressure 127/83 Blood Pressure [Right Arm] Blood Pressure Mean 97 Blood Pressure Mean [Right Arm] Blood Pressure Source [Right Arm] Blood Pressure Position [Right Arm] 02 Sat by Pulse Oximetry 98 95 Oxygen Delivery Method 04/04/25 00:00 04/04/25 00:23 04/04/25 00:30 Temperature Temperature Source Pulse Rate 97 H 94 H Pulse Rate [Right] Respiratory Rate Blood Pressure 124/79 Blood Pressure [Right Arm] Blood Pressure Mean 88 Blood Pressure Mean [Right Arm] Blood Pressure Source [Right Arm] Blood Pressure Position [Right Arm] 02 Sat by Pulse Oximetry 95 96 Oxygen Delivery Method 04/04/25 00:30 04/04/25 00:40 04/04/25 00:40 Temperature Temperature Source Pulse Rate 104 H Pulse Rate [Right] Respiratory Rate Blood Pressure 129/90 137/94 H Blood Pressure [Right Arm] Blood Pressure Mean 103 104 Blood Pressure Mean [Right Arm] Blood Pressure Source [Right Arm] Blood Pressure Position [Right Arm] 02 Sat by Pulse Oximetry 97 Oxygen Delivery Method 04/04/25 00:45 04/04/25 00:50 04/04/25 00:50 Temperature Temperature Source Pulse Rate 99 H 89 Pulse Rate [Right] Respiratory Rate Blood Pressure 139/88 Blood Pressure [Right Arm] Blood Pressure Mean 103 Blood Pressure Mean [Right Arm] Blood Pressure Source [Right Arm] Blood Pressure Position [Right Arm] 02 Sat by Pulse Oximetry 97 96 Oxygen Delivery Method 04/04/25 01:00 04/04/25 01:11 04/04/25 01:11 Temperature Temperature Source Pulse Rate 101 H 91 H Pulse Rate [Right] Respiratory Rate Blood Pressure 122/79 Blood Pressure [Right Arm] Blood Pressure Mean 93 Blood Pressure Mean [Right Arm] Blood Pressure Source [Right Arm] Blood Pressure Position [Right Arm] 02 Sat by Pulse Oximetry 97 96 Oxygen Delivery Method 04/04/25 01:15 04/04/25 01:20 04/04/25 01:30 Temperature Temperature Source Pulse Rate 105 H 101 H Pulse Rate [Right] Respiratory Rate Blood Pressure 141/96 H Blood Pressure [Right Arm] Blood Pressure Mean 108 Blood Pressure Mean [Right Arm] Blood Pressure Source [Right Arm] Blood Pressure Position [Right Arm] 02 Sat by Pulse Oximetry 96 96 Oxygen Delivery Method 04/04/25 01:30 04/04/25 01:40 04/04/25 01:45 Temperature Temperature Source Pulse Rate 98 H Pulse Rate [Right] Respiratory Rate Blood Pressure 125/66 112/80 Blood Pressure [Right Arm] Blood Pressure Mean 85 87 Blood Pressure Mean [Right Arm] Blood Pressure Source [Right Arm] Blood Pressure Position [Right Arm] 02 Sat by Pulse Oximetry 99 Oxygen Delivery Method 04/04/25 01:50 Temperature Temperature Source Pulse Rate Pulse Rate [Right] Respiratory Rate Blood Pressure 135/85 Blood Pressure [Right Arm] Blood Pressure Mean 97 Blood Pressure Mean [Right Arm] Blood Pressure Source [Right Arm] Blood Pressure Position [Right Arm] 02 Sat by Pulse Oximetry Oxygen Delivery Method Lab Data Lab Results 04/03/25 22:49: Urine Color Yellow, Urine Appearance Clear, Urine pH 6.0, Ur Specific [place] 1.020, Urine Protein Negative, Urine Glucose (UA) Negative, Urine Ketones Negative, Urine Blood Negative, Urine Nitrate Negative, Urine Bilirubin Negative, Urine Urobilinogen 0.2, Ur Leukocyte Esterase Negative, Urine RBC None, Urine WBC Occasional, Ur Squamous Epith Cells 3-5, Urine Bacteria None 04/03/25 23:00: WBC 11.6 H, RBC 5.23, Hgb 13.5 L, Hct 43.5, MCV 83.2, MCH 25.8 L, MCHC 31.0 L, RDW 14.1, Plt Count 381, MPV 9.0, Neut % (Auto) 66.3, Lymph % (Auto) 19.8, [place] % (Auto) 10.7 H, Eos % (Auto) 2.6, Baso % (Auto) 0.3, Neut # (Auto) 7.7, Lymph # (Auto) 2.3, [place] # (Auto) 1.2 H, Eos # (Auto) 0.3, Baso # (Auto) 0.0, PT 11.4, INR 1.03, Sodium 135 L, Potassium 3.5, Chloride 98, Carbon Dioxide 30, Anion Gap 10.5, BUN 12, Creatinine 0.70, Estimated Creat Clear 163, Estimated GFR 132, Est GFR ( Amer) 159, Glucose 110 H, Lactate 1.4, Calcium 8.8, Total Bilirubin 0.4, AST 32, ALT 41, Alkaline Phosphatase 111, Troponin I < 0.01, Total Protein 8.1, Albumin 4.3, Globulin 3.8 H, Albumin/Globulin Ratio 1.1, Lipase 34 04/03/25 23:00 04/03/25 23:00 Orders (Tests/Meds): ED MEDICATIONS Generic Name Dose Route Start Last Admin Trade Name Freq PRN Reason Stop Dose Admin Lactated Ringer's 1,000 mls @ 999 mls/hr 04/04/25 01:04 04/04/25 01:07 Lactated Ringer's 1000 Ml Bag IV 04/04/25 02:04 999 mls/hr .Q1H1M ONE Administration Discontinued Medications Generic Name Dose Route Start Last Admin Trade Name Freq PRN Reason Stop Dose Admin Iopamidol 75 ml 04/04/25 00:22 04/04/25 00:23 Iopamidol-370 (76%);100ml Bottle IV 04/04/25 00:23 75 ml ONCE ONE Administration Ondansetron HCl 4 mg 04/04/25 01:04 04/04/25 01:07 Ondansetron 4mg/2ml Vial IV 04/04/25 01:05 4 mg ONCE ONE Administration Sodium Chloride 10 ml 04/04/25 00:22 04/04/25 00:23 Sodium Chloride 0.9% 10ml Syr (Rad Only) IV 04/04/25 00:23 10 ml ONCE ONE Administration ORDERS Category Date Time Status CT abdomen pelvis w con Stat Cat Scan 04/03/25 23:57 Completed Complete Blood Count Auto Diff Stat Lab 04/03/25 23:00 Completed Comprehensive Metabolic Panel Stat Lab 04/03/25 23:00 Completed Lactic Acid Stat Lab 04/03/25 23:00 Completed Lipase Stat Lab 04/03/25 23:00 Completed Prothrombin Time INR Stat Lab 04/03/25 23:00 Completed Troponin I Q3H Lab 04/04/25 02:15 Ordered Troponin I Q3H Lab 04/04/25 05:15 Ordered Troponin I Stat Lab 04/03/25 23:00 Completed Urinalysis and Microscopic Stat Lab 04/03/25 22:49 Completed Medical Decision Narrative: In summary, this 29-year-old male with comorbidities described in the HPI presents to the emergency department today with concerns about his umbilical hernia. On initial evaluation patient is hemodynamically stable, afebrile, independently ambulatory into the ER, overall well-appearing on exam though he is morbidly obese, exam is most notable for a moderate-sized umbilical hernia that is soft, reducible at this time, no overlying erythema or skin discoloration, there is mild surrounding tenderness of the body wall but no induration or erythema, patient has no peritonitic findings on exam, otherwise well-appearing without acute abnormalities. Differential diagnosis includes but is not limited to umbilical hernia, reducible hernia, strangulated hernia, incarcerated hernia, bowel obstruction, electrolyte abnormality, lactic acidosis, pancreatitis, urinary tract infection, among others.. Based on these concerns, I ordered serum labs initially. I was concerned about the patient's weight and body circumference exceeding the capacity of our CT scanner because he is very close to exceeding these measurements, so I started with labs. ECG personally interpreted demonstrate sinus rhythm, rate 97, borderline right axis, normal HI and QTc, no STEMI Patient received Zofran and IV fluids for treatment. Labs personally reviewed demonstrate mild leukocytosis, slight anemia which are both nonactionable at this time, normal platelets, PT/INR normal, CMP nonactionable, good kidney function, troponin undetectably low less than 0.01, lipase normal, lactic normal at 1.4 which is very reassuring. UA negative for findings of infection. These labs are generally reassuring especially the normal lactic however with patient's mild leukocytosis and is complaint of periumbilical pain though his hernia is reducible believe CT abdomen pelvis is indicated. We are going to attempt imaging here and patient already knows if the scanner is not able to accommodate him that he will have to be transferred to a different facility for imaging. CT abdomen pelvis was able to be performed and was personally interpreted demonstrating no acute abnormality, patient has umbilical hernia but it does not appear to be strangulated. No bowel obstruction. See radiology read for final interpretation. On reassessment patient is appropriate for discharge at this time. He is resting comfortably. I provided prescription for Zofran for symptomatic management. I gave him a referral to general surgery for outpatient follow-up and reevaluation of his hernia for potential surgical repair though I did explain to him that our surgeons may not be able to handle his operation here due to his obesity which he understands. I gave the patient instructions for continued symptomatic monitoring and management, close monitoring of his hernia for any severe signs or symptoms which were explained to him, follow-up instructions, and return precautions for the ER. He indicated understanding and the patient was discharged in stable condition. Critical Care Critical Care Time Critical Care Time: No
== END 2025-04-04 01:59 | disposition home or self-care (01) ==
PROVIDERS: Emergency Medicine; Emergency Provider Student in an Organized Health Care Education/Training Program; PCP Family Medicine
DX: R10.33 Periumbilical pain (principal); K42.9 Umbilical hernia without obstruction or gangrene; R11.2 Nausea with vomiting, unspecified
CPT/HCPCS: 74177; 80053; 81001; 83605; 83690; 84484; 85025; 85610; 93005; 96361; 96374; 99285; J2405; J7120; Q9967